=== PATIENT | female | born 1965 | race Caucasian/White ===

== ENCOUNTER 2017-03-19 00:30 | Emergency (ER) | payer OTHER ==
[~2017-03-19] VITALS: Ht 160 cm; Wt 81.2 kg
[2017-03-19] MEDS ORDERED: SIMV10TA2 (00:42)
[2017-03-19] MEDS ORDERED: METF500T4 (00:42)
[2017-03-19] MEDS ORDERED: VALI5TAB PO (06:24)
[2017-03-19] MEDS ORDERED: NAPR500T PO (06:25)
[2017-03-19] MEDS ORDERED: KETOROLAC 60 MG/2 ML VIAL (J1885) IM ONE (06:30)
--- NOTE | 2017-03-19 07:34 | REP ---
Clinical: Pain. Technique: AP, lateral, bilateral oblique, flexion/extension, swimmer's and open-mouth views of the cervical spine. Findings: Alignment and lordosis maintained. Mild to moderate multilevel degenerative disc osteophyte complexes are noted. No acute fracture / compression injury or subluxation. Open mouth view demonstrates normal C1-C2 articulation and odontoid process. Spinous processes are intact. Prevertebral soft tissues are normal. Impression: Mild to moderate multilevel degenerative changes Signed by Robel Stewart MD 03/19/2017 07:33 A
--- NOTE | 2017-03-19 07:34 | REP ---
Clinical: Pain. Technique: AP and lateral views of the left humerus. Findings: No acute fracture dislocation. Skeletal structures, joint spaces and surrounding soft tissues are normal for age. No subcutaneous emphysema or radiodense foreign body. Impression: No acute fracture dislocation. Mild age-related changes at the shoulder. Signed by Robel Stewart MD 03/19/2017 07:33 A
[2017-03-19 08:22] VITALS: BP 107/68
== END 2017-03-19 08:23 | disposition home or self-care (01) ==
LOC: M ED 02:24
DX: M54.12 Radiculopathy, cervical region (principal); E11.9 Type 2 diabetes mellitus without complications; E66.9 Obesity, unspecified; Z79.899 Other long term (current) drug therapy

== ENCOUNTER 2017-10-14 14:06 | Emergency (ER) | payer OTHER, SELFPAY ==
[~2017-10-14] VITALS: Ht 160 cm; Wt 77.7 kg
[~2017-10-14 14:06] MED LIST: METF500T4; NAPR500T PO; SIMV10TA2; VALI5TAB PO
[2017-10-14] MEDS ORDERED: NORCO, ANEXSIA 5/325MG TABLET (HYDROcodone/ACETAMINOPHEN) PO ONE (14:30)
[2017-10-14] MEDS ORDERED: NORCOTAB PO (15:05)
[2017-10-14 15:56] VITALS: BP 133/68
--- NOTE | 2017-10-14 16:05 | REP ---
LUMBOSACRAL SPINE: Five views of the lumbosacral spine are performed. There is no compression fracture or malalignment. There is normal lumbar lordosis. There is mild spurring of L4 through S1. There is moderate narrowing with subchondral sclerosis at L4-L5. There is sclerosis at the facets of L5-S1. The posterior elements are intact. There are metallic clips in the right upper quadrant. IMPRESSION: Degenerative changes, most significantly at L4-L5. No fracture or dislocation. Signed by Percy Otero MD 10/14/2017 05:03 P
--- NOTE | 2017-10-14 16:08 | REP ---
RIGHT RIB SERIES: Four views of the right ribs are performed. There is a nondisplaced fracture at the anterolateral aspect of the right 7th rib. No other rib fracture or bone lesion is seen. An accompanying view of the chest demonstrates no acute infiltrate or pneumothorax. Heart is normal in size and the mediastinal silhouette is unremarkable. IMPRESSION: Nondisplaced fracture anterolateral aspect of right 7th rib. Signed by Percy Otero MD 10/14/2017 05:03 P
== END 2017-10-14 15:50 | disposition home or self-care (01) ==
LOC: M ED 14:06
DX: S22.31XA Fracture of one rib, right side, initial encounter for closed fracture (principal); W00.0XXA Fall on same level due to ice and snow, initial encounter; Y92.014 Private driveway to single-family (private) house as the place of occurrence of the external cause; Y93.89 Activity, other specified; Y99.8 Other external cause status; M51.36 Other intervertebral disc degeneration, lumbar region; E11.9 Type 2 diabetes mellitus without complications; E78.00 Pure hypercholesterolemia, unspecified; F33.9 Major depressive disorder, recurrent, unspecified; Z79.84 Long term (current) use of oral hypoglycemic drugs

== ENCOUNTER → 2019-02-12 | Outpatient (REF) | payer BC ==
[~2019-02-12] MED LIST changes: +HYDR-3715 PO; +NAPR-837 PO; -NAPR500T PO
[2019-02-12 13:01] LABS: BASO % 0.9 % (0.0-1.0); EOS # 0.1 10^3/uL (0.0-0.50); HEMATOCRIT 44.1 % (36.0-47.0); HEMOGLOBIN 14.8 g/dl (12.0-15.5); LYMPH # 1.8 10^3/uL (1.5-4.5); LYMPH % 40.2 % (24.0-44.0); MEAN CORPUSCULAR HEMOGLOBIN 29.7 pg (27.0-33.0); MEAN CORPUSCULAR HGB CONC 33.6 g/dl (32.0-36.5); MEAN CORPUSCULAR VOLUME 88.4 fl (80.0-96.0); MONO # 0.2 10^3/uL (0.0-0.8); MONO % 5.1 % (0.0-5.0); NEUTROPHILS # 2.3 10^3/uL (1.8-7.7); NEUTROPHILS % 51.6 % (36.0-66.0); PLATELET COUNT, AUTOMATED 191 10^3/uL (150-450); RED BLOOD COUNT 4.99 10^6/uL (4.00-5.40); WHITE BLOOD COUNT 4.5 10^3/uL (4.0-10.0)
[2019-02-12 13:18] LABS: ALBUMIN 3.9 GM/DL (3.2-5.2); ALT/SGPT 21 U/L (12-78); BILIRUBIN,TOTAL 1.2 MG/DL (0.2-1.0); BLOOD UREA NITROGEN 13 MG/DL (7-18); CALCIUM LEVEL 8.6 MG/DL (8.5-10.1); CARBON DIOXIDE LEVEL 28 MEQ/L (21-32); CHLORIDE LEVEL 104 MEQ/L (98-107); CHOLESTEROL LEVEL 208 MG/DL (<200); CHOLESTEROL RISK RATIO 5.073 (<5); CREATININE FOR GFR 0.74 MG/DL (0.55-1.30); FREE T4 1.04 NG/DL (0.76-1.46); GLOMERULAR FILTRATION RATE > 60.0 (>51); GLUCOSE, FASTING 293 MG/DL (70-100); HDL CHOLESTEROL 41 MG/DL (>40); LDL CHOLESTEROL 132 MG/DL (<100); NON-HDL-C 167 MG/DL; POTASSIUM SERUM 4.5 MEQ/L (3.5-5.1); SODIUM LEVEL 137 MEQ/L (136-145); TOTAL PROTEIN 6.9 GM/DL (6.4-8.2); TRIGLYCERIDES LEVEL 176 MG/DL (<150)
[2019-02-12 13:20] LABS: HEMOGLOBIN A1c 9.9 %
== END ==
LOC: M SFHCADAM 09:13
PROVIDERS: ATTEND Family Medicine
DX: E11.9 Type 2 diabetes mellitus without complications (principal); L65.9 Nonscarring hair loss, unspecified

== ENCOUNTER → 2019-03-27 | Outpatient (REF) | payer BC ==
[2019-03-29 14:19] LABS: HPV HYBRID CAPTURE II Negative (Negative)
== END ==
LOC: M LAB REF 17:20
PROVIDERS: ATTEND Obstetrics & Gynecology
DX: Z12.4 Encounter for screening for malignant neoplasm of cervix (principal)

== ENCOUNTER → 2019-04-03 | Outpatient (CLI) | payer BC ==
--- NOTE | 2019-04-03 16:52 | REP ---
BILATERAL MAMMOGRAM WITH 3D TOMOSYNTHESIS. COMPARISON: Baseline study. HISTORY: No family history of breast cancer. Minal Wilde lifetime risk of breast cancer 8.7%. Bilateral mammography performed in the MLO and CC projections with 3D tomosynthesis. There is mild scattered fibroglandular tissue bilaterally. There is a well-circumscribed nodule in the outer left breast. This measures about 5 mm in diameter. No other nodule or clustered microcalcifications are seen bilaterally. IMPRESSION: ACR 0 incomplete. Well-circumscribed smoothly marginated 5 mm nodule outer left breast. Recommend spot compression views and ultrasound for further evaluation. BIRADS 0: BI-RADS/ACR category 0 mammogram, Incomplete: Need additional imaging evaluation and/or prior mammograms for comparison. This mammogram was interpreted with the aid of an FDA-approved computer-aided detection system. The patient states she/he had a clinical breast exam in February 2019. The patient letter being requested is M0. Electronically Signed by Percy Otero MD 04/05/2019 08:42 A
== END ==
LOC: M RAD 14:45
PROVIDERS: ATTEND Obstetrics & Gynecology
DX: R92.2 Inconclusive mammogram (principal)

== ENCOUNTER → 2019-04-23 | Outpatient (CLI) | payer BC ==
--- NOTE | 2019-04-23 11:10 | REP ---
DIGITAL DIAGNOSTIC UNILATERAL LEFT BREAST MAMMOGRAPHY WITH CAD AND FOCUSED LEFT BREAST SONOGRAPHY: HISTORY: Screening mammography from April 03, 2019 was BIRADS category 0 incomplete regarding a well-circumscribed smoothly marginated 5 mm nodule laterally in the left breast. Diagnostic imaging was recommended. FINDINGS: Magnified focal spot compression CC, MLO and true ML views of the left breast are obtained. These confirm the presence of a well-circumscribed 5 mm nodule in the left inferolateral breast at approximately 4-o'clock position. There is a tiny normal lymph node in the axillary region of the left breast as well. SONOGRAPHIC FINDINGS: Focused left breast demonstrates a 4 x 4 x 5 mm hypoechoic solid nodule 4.3 cm from the nipple at the 3-o'clock position. This it is spherical in shape. It does not have sonographically suspicious features. There is hyperechoic central areas suggesting hilar fat in an intramammary lymph node. IMPRESSION: BIRADS 3: BI-RADS/ACR category 3 mammogram. Probably Benign Findings. BIRADS category 3 probably benign findings. 5 mm nodule likely representing an intramammary lymph node in the lateral aspect of the left breast. 6-month followup left breast mammography suggested. This mammogram was interpreted with the aid of an FDA-approved computer-aided detection system. The patient letter being requested is M3. Electronically Signed by Garfield Leigh MD 04/23/2019 01:15 P
== END ==
LOC: M RAD 09:51
PROVIDERS: ATTEND Obstetrics & Gynecology
DX: N63.20 Unspecified lump in the left breast, unspecified quadrant (principal)

== ENCOUNTER → 2019-05-14 | Outpatient (REF) | payer BC ==
[2019-05-14 13:24] LABS: HEMOGLOBIN A1c 6.2 %
== END ==
LOC: M SFHCADAM 08:07
PROVIDERS: ATTEND Family Medicine
DX: E11.69 Type 2 diabetes mellitus with other specified complication (principal)

== ENCOUNTER → 2019-05-16 | Outpatient (CLI) | payer BC ==
--- NOTE | 2019-05-16 12:57 | REP ---
LEFT KNEE, FIVE VIEWS: Five views left knee are performed. There is no acute fracture or dislocation. There is mild medial joint space narrowing. There is mild lateral patellofemoral compartment narrowing. There is no joint effusion. IMPRESSION: Mild degenerative changes as above. Electronically Signed by Percy Otero MD 05/18/2019 12:58 P
== END ==
LOC: M ADAMS 10:45
PROVIDERS: ATTEND Family Medicine
DX: M25.562 Pain in left knee (principal)

== ENCOUNTER → 2019-11-19 | Outpatient (REF) | payer BC ==
[~2019-11-19] MED LIST changes: +METF-791; -METF500T4; -SIMV10TA2; +SIMV10TA21
[2019-11-19 14:04] LABS: CHOLESTEROL RISK RATIO 3.135 (<5)
[2019-11-19 14:35] LABS: HEMOGLOBIN A1c 5.6 %
== END ==
LOC: M SFHCADAM 09:01
PROVIDERS: ATTEND Family Medicine
DX: E11.69 Type 2 diabetes mellitus with other specified complication (principal)

== ENCOUNTER → 2020-02-18 | Outpatient (REF) | payer BC ==
[2020-02-18 13:57] LABS: CHOLESTEROL RISK RATIO 2.794 (<5)
[2020-02-18 14:14] LABS: HEMOGLOBIN A1c 5.5 %
== END ==
LOC: M SFHCADAM 09:03
PROVIDERS: ATTEND Family Medicine
DX: E11.9 Type 2 diabetes mellitus without complications (principal)

== ENCOUNTER → 2020-02-29 | Outpatient (REF) | payer BC | LOC: M SFHCADAM 14:46 | PROVIDERS: ATTEND Family Medicine | DX: R30.0 Dysuria (principal); R50.9 Fever, unspecified ==

== ENCOUNTER → 2020-05-19 | Outpatient (REF) | payer BC ==
[~2020-05-19] MED LIST changes: +ACET-683 PO; +BUTA-198 PO; +CLAR10CA3 PO; +DOCU100C16 PO; +DOXY100T PO; +GLIP5TAB8 PO; +LORA-436 PO; -METF-791; +METF-838 PO; +PEG1POW PO; +SIMV40TA20 PO
[2020-05-19 13:45] LABS: HEMOGLOBIN A1c 5.7 %
== END ==
LOC: M SFHCADAM 08:03
PROVIDERS: ATTEND Family Medicine
DX: E11.69 Type 2 diabetes mellitus with other specified complication (principal)

== ENCOUNTER 2020-07-09 14:00 | Inpatient (IN) | payer BC ==
[~2020-07-09] VITALS: Ht 160 cm; Wt 82.8 kg
[~2020-07-09 14:00] MED LIST changes: -ACET-683 PO; -BUTA-198 PO; -CLAR10CA3 PO; -DOCU100C16 PO; -DOXY100T PO; -GLIP5TAB8 PO; -LORA-436 PO; -PEG1POW PO; -SIMV40TA20 PO
[2020-07-09] MEDS ORDERED: ACET-683 PO (14:29)
[2020-07-09] MEDS ORDERED: CLAR10CA3 PO (14:29)
[2020-07-09] MEDS ORDERED: GLIP5TAB8 PO ×2 (14:29→18:01)
--- NOTE | 2020-07-09 14:51 | REPVR ---
PROCEDURE INFORMATION: Exam: XR Chest, 2 Views Exam date and time: 07/09/2020 2:12 PM Age: 55 years old Clinical indication: Cough TECHNIQUE: Imaging protocol: XR of the chest Views: 2 views. COMPARISON: CR Ribs uni W-PA CHEST ONLY RIGHT 10/14/2017 2:26 PM FINDINGS: Lungs: Unremarkable. No consolidation. Pleural space: Unremarkable. No pleural effusion. No pneumothorax. Heart/Mediastinum: Unremarkable. No cardiomegaly. Bones/joints: Mild degenerative change of the spine. Intraperitoneal space: Right upper quadrant surgical clips. IMPRESSION: No acute cardiopulmonary abnormality. Electronically signed by: Leonie Hamilton On 07/09/2020 14:51:00 PM
[2020-07-09 15:33] LABS: HEMATOCRIT 31.9 % (36.0-47.0); HEMOGLOBIN 11.3 g/dl (12.0-15.5); MEAN CORPUSCULAR HEMOGLOBIN 31.2 pg (27.0-33.0); MEAN CORPUSCULAR HGB CONC 35.4 g/dl (32.0-36.5); MEAN CORPUSCULAR VOLUME 88.1 fl (80.0-96.0); PLATELET COUNT, AUTOMATED 130 10^3/uL (150-450); RED BLOOD COUNT 3.62 10^6/uL (4.00-5.40); WHITE BLOOD COUNT 6.7 10^3/uL (4.0-10.0)
[2020-07-09 15:52] LABS: ALBUMIN 3.1 GM/DL (3.2-5.2); ALT/SGPT 58 U/L (12-78); BILIRUBIN,TOTAL 1.6 MG/DL (0.2-1.0); BLOOD UREA NITROGEN 12 MG/DL (7-18); CALCIUM LEVEL 8.2 MG/DL (8.5-10.1); CARBON DIOXIDE LEVEL 22 MEQ/L (21-32); CHLORIDE LEVEL 108 MEQ/L (98-107); CREATININE FOR GFR 0.89 MG/DL (0.55-1.30); GLOMERULAR FILTRATION RATE > 60.0 (>51); GLUCOSE, FASTING 230 MG/DL (70-100); POTASSIUM SERUM 3.4 MEQ/L (3.5-5.1); SODIUM LEVEL 137 MEQ/L (136-145); TOTAL PROTEIN 6.4 GM/DL (6.4-8.2)
[2020-07-09 16:06] LABS: BASOPHILS 1 % (0-1); LYMPHOCYTES 13 % (16-44); METAMYELOCYTES 1 % (0-0); MONOCYTES 5 % (0-5); MYELOCYTES 1 % (0-0); NEUTROPHILS 76 % (28-66)
[2020-07-09 16:07] LABS: PLATELET ESTIMATE DECREASED (NORMAL)
[2020-07-09] MEDS ORDERED: POTASSIUM CHLORIDE 10 MEQ SR TABLET PO ONE (16:30)
[2020-07-09] MEDS ORDERED: NS 1,000 ML IV ONE (17:15)
[2020-07-09] MEDS ORDERED: PROMETHAZINE INJ 25 MG/ML VIAL (J2550) IV ONE (17:15)
[2020-07-09] MEDS ORDERED: diphenhydrAMINE 50MG/ML VIAL (J1200) IV ONE (17:15)
[2020-07-09] MEDS ORDERED: ACETAMINOPHEN 500 MG TAB PO ONE (17:45)
[2020-07-09] MEDS ORDERED: LORA-436 PO (18:01)
[2020-07-09] MEDS ORDERED: SIMV40TA20 PO (18:01)
[2020-07-09] MEDS ORDERED: GLUCOSE 4GM CHEW TABLET PO PRN (18:15)
[2020-07-09] MEDS ORDERED: GLUCAGON INJ 1MG VIAL SC PRN (18:15)
[2020-07-09] MEDS ORDERED: DEXTROSE 50% 50 ML SYRINGE IV PRN (18:15)
--- NOTE | 2020-07-09 18:24 | HPEPDOC ---
[facility] Medical History & Physical Date of Admission Jul 09, 2020 Date of Service: Jul 09, 2020 History and Physical Chief complaint: Presented to the ER from urgent care after she had a fever History of present illness: Patient is a 55 year old female with a PMHx of DM2, DLP and Arthritis who presented to the ER from Urgent care after she was noted to have a fever. Patient reported that on Tuesday she began to experience chills. On Tuesday, she had woken up to headache, including mostly her sinuses around her cheeks and forehead. Patient noted that she had a fever of 101-102F that had improved with Ibuprofen. Tuesday patient had gone into work but experienced a fever that afternoon, again she managed with Ibuprofen. Today patient called in sick to work and visited urgent care ([facility]) for further evaluation. Patient had a septic workup completed there. COVID / CXR / UA were noted to be negative. Patient was noted to have a rectal temperature of 104F, she receive IV fluids a dose of Ceftriaxone 2g IV and Ketorolac IV was sent to [facility] ER for further evaluation. Currently patient notes she has a headache around her frontal region. Denies any N/V, abdominal pain, constipation, diarrhea or urinary discomfort. Denies any CP, SOB or palpitations. Reports a chronic cough. Patient has reported a history of multiple urinary tract infections; over the course of 6 months has had 5-6 UTIs. Patient denies any recent travel or sick contacts. Has noted that she had gone camping at the end of April, however denied any insect bites that she was aware of. Past Medical History: DM2, DLP and Arthritis Past Surgical History: Cholecystectomy Appendectomy Tonsillectomy Adenoidectomy Tympanostomy Bilateral Multiple broken bones Allergies: See below Medications: See below Family History: - Patient notes she was adopted Social History: - Denies the use of alcohol, tobacco or illicit drugs - Denies recent travel or sick contacts; although notes she went camping at the end of April - Lives with parents and is - Occupation; works at [employer] Review of Systems: 10 point review of systems complete, all negative otherwise stated in HPI Physical exam: - Vitals: BP [128/61], HR [98], RR [16], Sat [97%RA], Temp [101.9F] - General: Lying in bed, Chills, Speaking in full sentences, AAOx3 - HEENT: NC, AT, PERRLA, EOMI - CVS: Tachycardia, +S1S2 - Lungs: Fair air entry bilaterally, No appreciable wheezing / rales / rhonchi - Abdomen: Soft, Non-distended, Non-tender - Extremities: No lower extremity edema, No calf tenderness - Neuro: No focal motor or sensory deficit - Skin: No visible rashes Assessment and Plan: Fever - unclear etiology - Patient has presented to [facility] ER, from Urgent care after she had a fever - Currently patient is hemodynamically stable; although febrile - No leukocytosis, No lactic acidosis - UA competed at urgent care; reviewed without evidence of LE / Nitrates - Respiratory panel (07/08): Negative - CT head (07/08): No acute intracranial abnormality identified. - CXR (07/08): No acute cardiopulmonary abnormality. - Will repeat UA w/ reflex culture - Blood cultures pending - Will check CT abdomen / pelvis, MRI brain - Will check EBV / Lyme disease / ESR / CRP / Procalcitonin / ROQUE - Will empirically start Doxycycline; will adjust antibiotics base on cultures - Will consider ID consultation if workup remains negative DM2 - Will hold oral anti-hyperglycemic medications - Will start ISS while inpatient DLP - c/w Simvastatin Arthritis - c/w Tylenol PRN DVT prophylaxis - Will start Heparin Vital Signs Vital Signs Date Time Temp Pulse Resp B/P (MAP) Pulse Ox O2 Delivery O2 Flow Rate FiO2 07/09/20 17:23 101.9 98 16 128/61 (83) 92 Room Air Laboratory Data Labs 24H Laboratory Tests 2 07/09/20 14:34: 07/09/20 14:45: Neutrophils (%) (Auto) , Nucleated Red Blood Cells % (auto) 0.0, Neutrophils 76H, Band Neutrophils 3, Lymphocytes (Manual) 13L, Monocytes (Manual) 5, Basophils (Manual) 1, Metamyelocytes 1H, Myelocytes 1H, Red Blood Cell Morphology NORMAL, Platelet Estimate DECREASED, Anion Gap 7L, Glomerular Filtration Rate > 60.0, Lactic Acid Level 1.1, Calcium Level 8.2L, Total Bilirubin 1.6H, Aspartate Amino Transf (AST/SGOT) 49H, Alanine Aminotransferase (ALT/SGPT) 58, Alkaline Phosphatase 76, C-Reactive Protein, Quantitative 15.60H, Total Protein 6.4, Albumin 3.1L, Albumin/Globulin Ratio 0.9L CBC/BMP Laboratory Tests 07/09/20 14:45 Microbiology Microbiology 07/09/20 Respiratory Virus Panel (PCR) (JACINDA) - Final, Complete 07/09/20 Blood Culture, Received Pending 07/09/20 Blood Culture, Received Pending Home Medications Scheduled Doxycycline Hyclate (Doxycycline Hyclate) 100 Mg Tablet, 100 MG PO BID Glipizide (Glipizide) 5 Mg Tablet, 5 MG PO QAM Glipizide (Glipizide) 5 Mg Tablet, 10 MG PO QPM Loratadine (Loratadine) 10 Mg Tablet, 10 MG PO DAILY Metformin HCl (Metformin HCl ER) 500 Mg Tab, 1,000 MG PO QPM Polyethylene Glycol 3350 (Polyethylene Glycol 3350) 17 Gm Powd.pack, 1 PKT PO DAILY Simvastatin (Simvastatin) 40 Mg Tablet, 40 MG PO QHS Scheduled PRN Acetaminophen (Acetaminophen) 500 Mg Tablet, 1,500 MG PO Q6H PRN for NECK PAIN Docusate Sodium (Docusate Sodium) 100 Mg Capsule, 100 MG PO BIDP PRN for CONSTIPATION Allergies Coded Allergies: No Known Allergies (Unverified , 03/19/17) A-FIB/CHADSVASC A-FIB History Current/History of A-Fib/PAF?: No SANTOSH PARK MD Jul 09, 2020 18:24
[2020-07-09] MEDS ORDERED: ISOVUE-370 76% 100ML VIAL As Ordered ONE (18:25)
[2020-07-09 18:28] LABS: MONO SCRN NEGATIVE (NEGATIVE)
[2020-07-09 18:38] LABS: ERYTHROCYTE SEDIMENTATION RATE 84 mm/hr (0-30)
[2020-07-09] MEDS ORDERED: DOXYCYCLINE HYCLATE 100MG TABLET PO SCH (19:00)
--- NOTE | 2020-07-09 20:28 | REPVR ---
PROCEDURE INFORMATION: Exam: MR Head Without Contrast Exam date and time: 07/09/2020 7:21 PM Age: 55 years old Clinical indication: Pain; Headache not specified; Patient HX: H/a fever 101. PT negative for covid and flu TECHNIQUE: Imaging protocol: MR of the head without contrast. COMPARISON: CT Head without contrast 07/09/2020 3:05 PM FINDINGS: Limitations: Motion artifact limits this study. Brain: No restricted diffusion within the brain to suggest an acute infarct. There are scattered foci of FLAIR hyperintensity within the cerebral white matter. There is no mass effect or restricted diffusion associated with these foci. This white matter disease is nonspecific as to etiology. Chronic small vessel ischemic disease is suggested. Additional etiologies include foci of demyelination, post-traumatic change, and migraine headaches, as well as additional infectious, inflammatory and autoimmune etiologies. Mild FLAIR hyperintense edema or gliosis is identified involving the frontal cortices medially as well as the medial temporal lobes. There is additional edema/gliosis involving the left insula. Although nonspecific, encephalitis is considered. No magnetic susceptibility intracerebral blood products/hemosiderin visualized. Ventricles: There is mild prominence of the ventricles and sulci, compatible with atrophy. Bones/joints: Unremarkable, as visualized. Sinuses: Mild mucosal thickening of ethmoid air cells bilaterally. Mastoid air cells: No mastoid effusion. Orbits: No acute abnormality visualized. Soft tissues: Unremarkable, as visualized. IMPRESSION: 1. Mild edema or gliosis is identified involving the frontal cortices medially as well as the medial temporal lobes. There is additional edema/gliosis involving the left insula. Although nonspecific, encephalitis is considered. Clinical correlation and a follow-up MRI with/without contrast are recommended. 2. No restricted diffusion within the brain to suggest an acute infarct. 3. There are scattered foci of FLAIR hyperintensity within the cerebral white matter. This white matter disease is nonspecific as to etiology, as detailed above. Chronic small vessel ischemic disease is suggested. 4. Mild atrophy. 5. Additional findings described above. Electronically signed by: Rohan Dawson On 07/09/2020 20:28:12 PM
--- NOTE | 2020-07-09 20:43 | REPVR ---
PROCEDURE INFORMATION: Exam: CT Abdomen And Pelvis With Contrast Exam date and time: 07/09/2020 8:02 PM Age: 55 years old Clinical indication: Abdominal pain; Generalized; Additional info: Multiple UTI / fever TECHNIQUE: Imaging protocol: Computed tomography of the abdomen and pelvis with intravenous contrast. Radiation optimization: All CT scans at this facility use at least one of these dose optimization techniques: automated exposure control; mA and/or kV adjustment per patient size (includes targeted exams where dose is matched to clinical indication); or iterative reconstruction. Contrast material: ISOVUE 370; Contrast volume: 100 ml; Contrast route: INTRAVENOUS (IV); COMPARISON: CT ABD PELVIS W/O CONTRAST 04/09/2015 12:11 PM FINDINGS: Lungs: Bibasilar atelectatic changes are identified. Mediastinal space: Wall thickening of the distal esophagus is visualized, which has progressed. This can be due to esophagitis, although additional esophageal pathology cannot be excluded. Small paraesophageal lymph nodes are identified. Liver: Mild hypodense fatty infiltration of the liver. Hepatomegaly. Within the right hepatic lobe posteriorly, there is a 1.4 x 1.1 cm hypodense lesion with peripheral nodular enhancement. This likely represents a hemangioma, although additional pathology cannot be excluded without delayed imaging. Gallbladder and bile ducts: Surgical clips are identified within the gallbladder fossa, compatible with cholecystectomy. Pancreas: Unremarkable. No ductal dilation. Spleen: Splenomegaly visualized. The spleen measures 14.8 cm in length. Adrenals: No mass. Kidneys and ureters: There is heterogeneous enhancement at the upper pole of the right kidney. Right perinephric stranding is identified. This is concerning for pyelonephritis given the clinical history of UTI. Small renal lesions cannot be excluded. A small nonobstructing right renal calculus is identified. Additional simple appearing renal cysts are identified bilaterally. At the upper pole of the left kidney, this cyst measures 1.3 cm in diameter. No hydronephrosis bilaterally. Duplication of the right renal cortex.Colonic diverticula are identified, without acute inflammatory stranding of the adjacent mesentery. Stomach and bowel: Wall thickening of the antrum of the stomach and proximal duodenum, suggestive of gastroenteritis. Evaluation of bowel is limited by the absence of oral contrast. No bowel obstruction. Appendix: No evidence of appendicitis. Intraperitoneal space: No free air. No significant fluid collection. Vasculature: No abdominal aortic aneurysm. Lymph nodes: See "Mediastinal space" finding. Bladder: Gas is visualized within the bladder, which is likely iatrogenic or infectious. Reproductive: Unremarkable as visualized. Bones/joints: Hypertrophic degenerative changes are noted involving the spine. Soft tissues: Unremarkable. IMPRESSION: 1. There is heterogeneous enhancement at the upper pole of the right kidney. Right perinephric stranding is identified. This is concerning for pyelonephritis given the clinical history of UTI. Small renal lesions cannot be excluded. 2. A small nonobstructing right renal calculus is identified. Additional simple appearing renal cysts are identified bilaterally. 3. Wall thickening of the distal esophagus is visualized, which has progressed. This can be due to esophagitis, although additional esophageal pathology cannot be excluded. Small paraesophageal lymph nodes are identified. 4. Mild hypodense fatty infiltration of the liver. Hepatomegaly. Within the right hepatic lobe posteriorly, there is a 1.4 x 1.1 cm hypodense lesion with peripheral nodular enhancement. This likely represents a hemangioma, although additional pathology cannot be excluded without delayed imaging. A follow-up multiphase postcontrast CT is recommended. 5. Splenomegaly. 6. Wall thickening of the antrum of the stomach and proximal duodenum, suggestive of gastroenteritis. 7. Gas is visualized within the bladder, which is likely iatrogenic or infectious. 8. Diverticulosis. 9. Additional findings described above. Electronically signed by: Rohan Dawson On 07/09/2020 20:43:11 PM
[2020-07-09 21:10] VITALS: BP 114/61
[2020-07-09] MEDS: HumaLOG INSULIN (NovoLOG) PER UNIT SC SCH (22:04)
[2020-07-09] MEDS: SIMVASTATIN 40 MG TAB PO SCH (22:04)
[2020-07-09] MEDS: ACETAMINOPHEN TAB 650MG DOSE (2X325MG) PO PRN (22:05)
[2020-07-09] MEDS: HEPARIN SOD (PORCINE) 5000UNITS/ML 1ML VIAL/SYRINGE SC SCH (22:05)
[2020-07-09] MEDS ORDERED: CIPROFLOXACIN 200 MG in IV 1 EA IV SCH (23:00)
[2020-07-10] VITALS (8 sets, daily range): BP systolic 92–117; BP diastolic 51–60
[2020-07-10] MEDS: DOCUSATE SODIUM 100 MG CAP PO PRN (00:22)
[2020-07-10] MEDS ORDERED: NS 1,000 ML IV ONE ×2 (02:15→03:45)
[2020-07-10] MEDS: ACETAMINOPHEN TAB 650MG DOSE (2X325MG) PO PRN ×2 (03:48→15:55)
[2020-07-10] MEDS: NS 1,000 ML IV SCH ×2 (05:10→11:55)
[2020-07-10] MEDS: HEPARIN SOD (PORCINE) 5000UNITS/ML 1ML VIAL/SYRINGE SC SCH (05:28)
[2020-07-10] MEDS: MIRALAX *UNIT DOSE* 17GM PACKET PO SCH (05:52)
[2020-07-10 06:18] LABS: HEMATOCRIT 26.3 % (36.0-47.0); MEAN CORPUSCULAR HEMOGLOBIN 30.9 pg (27.0-33.0); MEAN CORPUSCULAR HGB CONC 34.2 g/dl (32.0-36.5); MEAN CORPUSCULAR VOLUME 90.4 fl (80.0-96.0); PLATELET COUNT, AUTOMATED 117 10^3/uL (150-450); RED BLOOD COUNT 2.91 10^6/uL (4.00-5.40); WHITE BLOOD COUNT 5.4 10^3/uL (4.0-10.0)
[2020-07-10 06:41] LABS: BLOOD UREA NITROGEN 12 MG/DL (7-18); CALCIUM LEVEL 7.7 MG/DL (8.5-10.1); CARBON DIOXIDE LEVEL 19 MEQ/L (21-32); CHLORIDE LEVEL 115 MEQ/L (98-107); CREATININE FOR GFR 0.63 MG/DL (0.55-1.30); GLOMERULAR FILTRATION RATE > 60.0 (>51); GLUCOSE, FASTING 120 MG/DL (70-100); MAGNESIUM LEVEL 1.7 MG/DL (1.8-2.4); POTASSIUM SERUM 3.5 MEQ/L (3.5-5.1); SODIUM LEVEL 139 MEQ/L (136-145)
[2020-07-10] MEDS ORDERED: MAG SULF 1GM/100ML (MAG RUN) 1 GM in IV 1 EA IV ONE (07:00)
[2020-07-10] MEDS ORDERED: POTASSIUM CHLORIDE 10 MEQ SR TABLET PO ONE (07:00)
[2020-07-10] MEDS ORDERED: MEROPENEM INJ 1 GM in IV 1 EA IV SCH (08:00)
[2020-07-10] MEDS: LORATADINE 10 MG TAB PO SCH (08:24)
[2020-07-10] MEDS: HumaLOG INSULIN (NovoLOG) PER UNIT SC SCH ×4 (08:25→21:00)
[2020-07-10] MEDS ORDERED: DOXYCYCLINE HYCLATE 100MG TABLET PO SCH (09:00)
[2020-07-10] MEDS ORDERED: PROHANCE 279.3MG/ML 15ML VIAL As Ordered ONE (09:57)
--- NOTE | 2020-07-10 10:34 | REPVR ---
PROCEDURE INFORMATION: Exam: MR Head With Contrast Exam date and time: 07/10/2020 10:19 AM Age: 55 years old Clinical indication: Abnormal findings; Abnormal radiologic findings of head/skull; White matter disease, unspecified; Patient HX: Post contrast only, f/u yesterday noncontrast brain mri; Additional info: Fever, brain mri showing edema/gliosis TECHNIQUE: Imaging protocol: MR of the head with intravenous contrast. Contrast material: PROHANCE; Contrast volume: 15 ml; Contrast route: INTRAVENOUS (IV); COMPARISON: MRI-Brain without Contrast 07/09/2020 6:52 PM FINDINGS: Brain: Postcontrast images of the brain reveals no abnormal contrast enhancement in the areas increased T2/FLAIR signal in bilateral medial frontal and medial temporal lobes. Viral encephalitis such as herpes encephalitis should be considered. No abnormal contrast enhancement is seen to suggest underlying mass lesion. No abnormal contrast enhancement is seen in the remainder of the brain parenchyma. Ventricles: The ventricular system is not dilated and is appropriate for the patient's age. Bones/joints: Unremarkable. Sinuses: Normal as visualized. No acute sinusitis. Mastoid air cells: Normal as visualized. No mastoid effusion. Orbits: Unremarkable. Soft tissues: Unremarkable. IMPRESSION: Postcontrast images of the brain reveals no abnormal contrast enhancement in the areas increased T2/FLAIR signal in bilateral medial frontal and medial temporal lobes. Viral encephalitis such as herpes encephalitis should be considered. No abnormal contrast enhancement is seen to suggest underlying mass lesion. No abnormal contrast enhancement is seen in the remainder of the brain parenchyma. Electronically signed by: Danny Bear On 07/10/2020 10:34:34 AM
--- NOTE | 2020-07-10 14:16 | IPNPDOC ---
Text Note Date of Service The patient was seen on 07/10/20. NOTE Subjective: Patient is a 55 year old female with a PMHx of DM2, DLP and Arthritis who presented to the ER from Urgent care after she was noted to have a fever. She was admitted to the hospitalist service for fever and started on Doxycycline. Overnight patient was reported to be hypotensive and had received 3L NS bolus. There was a suspicion for UTI and Ciprofloxacin was started. This morning patient was given a dose of Meropenem because of a concern for sepsis. Patient's lactic acid was normal, no leukocytosis, remained afebrile. Patient's antibiotics were adjusted back to Doxycycline. Based on MRI findings and after discussion with radiology, anesthesia was consulted for lumbar puncture to rule encephalitis. Patient was seen and examined at the bedside. Currently patient denies any CP, SOB or palpitations. Reports a mild non-productive cough that she attributes to dry air. Denies N/V, abdominal pain, C/D or urinary discomfort. Objective: Vitals (See below) General: Lying in bed, appears comfortable, AAOx3 HEENT: NC, AT CVS: RRR, +S1S2 Lungs: Fair air entry b/l, -w/r/r Abdomen: Soft, ND, NT, No CVA tenderness Extremities: No edema, - Calf tenderness Imaging: CXR (07/08): - No acute cardiopulmonary abnormality. CT head (07/08): - No acute intracranial abnormality identified. CT abdomen / pelvis 07/09: 1. There is heterogeneous enhancement at the upper pole of the right kidney. Right perinephric stranding is identified. This is concerning for pyelonephritis given the clinical history of UTI. Small renal lesions cannot be excluded. 2. A small nonobstructing right renal calculus is identified. Additional simple appearing renal cysts are identified bilaterally. 3. Wall thickening of the distal esophagus is visualized, which has progressed. This can be due to esophagitis, although additional esophageal pathology cannot be excluded. Small paraesophageal lymph nodes are identified. 4. Mild hypodense fatty infiltration of the liver. Hepatomegaly. Within the right hepatic lobe posteriorly, there is a 1.4 x 1.1 cm hypodense lesion with peripheral nodular enhancement. This likely represents a hemangioma, although additional pathology cannot be excluded without delayed imaging. A follow-up multiphase postcontrast CT is recommended. 5. Splenomegaly. 6. Wall thickening of the antrum of the stomach and proximal duodenum, suggestive of gastroenteritis. 7. Gas is visualized within the bladder, which is likely iatrogenic or infectious. 8. Diverticulosis. 9. Additional findings described above. MRI brain without contrast (07/09): 1. Mild edema or gliosis is identified involving the frontal cortices medially as well as the medial temporal lobes. There is additional edema/gliosis involving the left insula. Although nonspecific, encephalitis is considered. Clinical correlation and a follow-up MRI with/without contrast are recommended. 2. No restricted diffusion within the brain to suggest an acute infarct. 3. There are scattered foci of FLAIR hyperintensity within the cerebral white matter. This white matter disease is nonspecific as to etiology, as detailed above. Chronic small vessel ischemic disease is suggested. 4. Mild atrophy. 5. Additional findings described above. MRI brain with contrast (07/10): Postcontrast images of the brain reveals no abnormal contrast enhancement in the areas increased T2/FLAIR signal in bilateral medial frontal and medial temporal lobes. Viral encephalitis such as herpes encephalitis should be considered. No abnormal contrast enhancement is seen to suggest underlying mass lesion. No abnormal contrast enhancement is seen in the remainder of the brain parenchyma. Assessment and plan: Fever - unclear etiology - Patient has presented to [facility] ER, from Urgent care after she had a fever - Remains afebrile since admission; patient was reported hypotensive at night - No leukocytosis or lactic acidosis - UA competed at urgent care; reviewed without evidence of LE / Nitrates; However UA here shows suspicion of UTI - patient remains asymptomatic - Urine cultures (07/09): Pending - Respiratory panel (07/08): Negative - Blood cultures 07/09: Pending - c/w Doxycycline (Day #2); s/p Dose of Meropenem and Ciprofloxacin - [place] negative - Lyme disease pending / ROQUE pending - Discussed with Anesthesia; will perform LP today and CSF will be sent for analysis - Consultation ID [id number] - c/w ISS DLP - c/w Simvastatin Arthritis - c/w Tylenol PRN DVT prophylaxis - Will hold Heparin (re: LP) VS,Fishbone, I+O VS, Fishbone, I+O Laboratory Tests 07/09/20 14:45 07/10/20 05:54 Vital Signs Date Time Temp Pulse Resp B/P (MAP) Pulse Ox O2 Delivery O2 Flow Rate FiO2 07/10/20 05:05 98.0 89 96 Room Air 07/10/20 04:55 100/60 (73) 07/10/20 03:30 21 I&O- Last 24 Hours up to 6 AM 07/10/20 06:00 Intake Total 3640 ml Output Total 350 ml Balance 3290 ml SANTOSH PARK MD Jul 10, 2020 14:16
[2020-07-10 16:07] LABS: APPEARANCE, CSF CLEAR (CLEAR); COLOR, CSF COLORLESS (COLORLESS); CSF TUBE# CELL CNT TUBE 1
[2020-07-10 16:08] LABS: APPEARANCE, CSF CLEAR (CLEAR); COLOR, CSF COLORLESS (COLORLESS); CSF TUBE# CELL CNT TUBE 4
[2020-07-10 16:26] LABS: CSF TUBE# GLU TUBE 2; CSF TUBE# TP TUBE 2; GLUCOSE CSF 64 MG/DL (40-75); TOTAL PROTEIN,CSF 32 MG/DL (15-45)
[2020-07-10] MEDS ORDERED: FIORICET TAB PO ONE (17:00)
[2020-07-10] MEDS ORDERED: IBUPROFEN 600MG TAB PO PRN (17:30)
[2020-07-10] MEDS: DOXYCYCLINE HYCLATE 100MG TABLET PO SCH (17:39)
[2020-07-10] MEDS: SIMVASTATIN 40 MG TAB PO SCH (21:18)
[2020-07-11 06:00] VITALS: BP 110/56
[2020-07-11] MEDS: ACETAMINOPHEN TAB 650MG DOSE (2X325MG) PO PRN ×2 (06:43→20:49)
[2020-07-11 06:46] LABS: HEMATOCRIT 26.7 % (36.0-47.0); HEMOGLOBIN 9.2 g/dl (12.0-15.5); MEAN CORPUSCULAR HEMOGLOBIN 30.9 pg (27.0-33.0); MEAN CORPUSCULAR HGB CONC 34.5 g/dl (32.0-36.5); MEAN CORPUSCULAR VOLUME 89.6 fl (80.0-96.0); PLATELET COUNT, AUTOMATED 146 10^3/uL (150-450); RED BLOOD COUNT 2.98 10^6/uL (4.00-5.40); WHITE BLOOD COUNT 5.6 10^3/uL (4.0-10.0)
[2020-07-11 07:03] LABS: BLOOD UREA NITROGEN 8 MG/DL (7-18); CALCIUM LEVEL 7.8 MG/DL (8.5-10.1); CARBON DIOXIDE LEVEL 22 MEQ/L (21-32); CHLORIDE LEVEL 110 MEQ/L (98-107); CREATININE FOR GFR 0.54 MG/DL (0.55-1.30); GLOMERULAR FILTRATION RATE > 60.0 (>51); GLUCOSE, FASTING 151 MG/DL (70-100); POTASSIUM SERUM 3.9 MEQ/L (3.5-5.1); SODIUM LEVEL 137 MEQ/L (136-145)
[2020-07-11] MEDS: HumaLOG INSULIN (NovoLOG) PER UNIT SC SCH ×4 (07:30→20:38)
[2020-07-11] MEDS ORDERED: INFLUENZA QUADRIVALENT PF VACCINE 0.5ML SYRINGE IM ONE (09:00)
[2020-07-11] MEDS ORDERED: FLUBLOK(EGG FREE)(QUAD)INFLUENZA VACC 0.5ML SYRINGE 18YRS & OLDER IM ONE (09:00)
[2020-07-11] MEDS: MIRALAX *UNIT DOSE* 17GM PACKET PO SCH (09:00)
[2020-07-11] MEDS: LORATADINE 10 MG TAB PO SCH (09:11)
[2020-07-11] MEDS: DOXYCYCLINE HYCLATE 100MG TABLET PO SCH ×2 (09:12→20:47)
--- NOTE | 2020-07-11 13:39 | IPNPDOC ---
Text Note Date of Service The patient was seen on 07/11/20. NOTE Subjective: Patient is a 55 year old female with a PMHx of DM2, DLP and Arthritis who presented to the ER from Urgent care after she was noted to have a fever. She was admitted to the hospitalist service for fever and started on Doxycycline. Overnight patient was reported to be hypotensive and had received 3L NS bolus. There was a suspicion for UTI and Ciprofloxacin was started. This morning patient was given a dose of Meropenem because of a concern for sepsis. Patient's lactic acid was normal, no leukocytosis, remained afebrile. Patient's antibiotics were adjusted back to Doxycycline. Based on MRI findings and after discussion with radiology, anesthesia was consulted for lumbar puncture to rule encephalitis. Patient was seen and examined at the bedside. Patient reports that her headache is doing better. She denies any sensitivity to light today. She denies any nausea, vomiting, abdominal pain, diarrhea, or urinary discomfort. Denies any chest pain, palpitations, but does report a mild nonproductive cough. Objective: Vitals (See below) General: Sitting up in bed, appears comfortable, AAOx3 HEENT: NC, AT CVS: RRR, +S1S2 Lungs: Fair air entry b/l, no appreciable wheezing, rhonchi or rales Abdomen: Soft, nondistended, without tenderness Extremities: Lower extremities are free of any pitting edema, - Calf tenderness Imaging: CXR (07/08): - No acute cardiopulmonary abnormality. CT head (07/08): - No acute intracranial abnormality identified. CT abdomen / pelvis 07/09: 1. There is heterogeneous enhancement at the upper pole of the right kidney. Right perinephric stranding is identified. This is concerning for pyelonephritis given the clinical history of UTI. Small renal lesions cannot be excluded. 2. A small nonobstructing right renal calculus is identified. Additional simple appearing renal cysts are identified bilaterally. 3. Wall thickening of the distal esophagus is visualized, which has progressed. This can be due to esophagitis, although additional esophageal pathology cannot be excluded. Small paraesophageal lymph nodes are identified. 4. Mild hypodense fatty infiltration of the liver. Hepatomegaly. Within the right hepatic lobe posteriorly, there is a 1.4 x 1.1 cm hypodense lesion with peripheral nodular enhancement. This likely represents a hemangioma, although additional pathology cannot be excluded without delayed imaging. A follow-up multiphase postcontrast CT is recommended. 5. Splenomegaly. 6. Wall thickening of the antrum of the stomach and proximal duodenum, suggestive of gastroenteritis. 7. Gas is visualized within the bladder, which is likely iatrogenic or infectious. 8. Diverticulosis. 9. Additional findings described above. MRI brain without contrast (07/09): 1. Mild edema or gliosis is identified involving the frontal cortices medially as well as the medial temporal lobes. There is additional edema/gliosis involving the left insula. Although nonspecific, encephalitis is considered. Clinical correlation and a follow-up MRI with/without contrast are recommended. 2. No restricted diffusion within the brain to suggest an acute infarct. 3. There are scattered foci of FLAIR hyperintensity within the cerebral white matter. This white matter disease is nonspecific as to etiology, as detailed ab ove. Chronic small vessel ischemic disease is suggested. 4. Mild atrophy. 5. Additional findings described above. MRI brain with contrast (07/10): Postcontrast images of the brain reveals no abnormal contrast enhancement in the areas increased T2/FLAIR signal in bilateral medial frontal and medial temporal lobes. Viral encephalitis such as herpes encephalitis should be considered. No abnormal contrast enhancement is seen to suggest underlying mass lesion. No abnormal contrast enhancement is seen in the remainder of the brain parenchyma. Assessment and plan: Fever - unclear etiology - Patient has presented to [facility] ER, from Urgent care after she had a fever - Reports improvement of headache - Febrile yesterday - No leukocytosis or lactic acidosis - Urine cultures (07/09): Negative - Respiratory panel (07/08): Negative - Blood cultures 07/09: 24 hours negative - c/w Doxycycline (Day #3); s/p Dose of Meropenem and Ciprofloxacin - [place] negative - Lyme disease pending / ROQUE pending - s/p CSF; fluid reviewed - Will get MRI abdomen - ID on consultation; appreciate their input Small renal lesions cannot be excluded based on CT abdomen - Will get MRI abdomen DM2 - c/w ISS DLP - c/w Simvastatin Arthritis - c/w Tylenol PRN and Ibuprofen PRN DVT prophylaxis - Will resume Heparin VS,Fishbone, I+O VS, Fishbone, I+O Laboratory Tests 07/11/20 06:24 Vital Signs Date Time Temp Pulse Resp B/P (MAP) Pulse Ox O2 Delivery O2 Flow Rate FiO2 07/11/20 06:00 98.0 79 16 110/56 (74) 96 Room Air I&O- Last 24 Hours up to 6 AM 07/11/20 06:00 Intake Total 1410 ml Output Total 875 ml Balance 535 ml SANTOSH PARK MD Jul 11, 2020 13:39
[2020-07-11] MEDS ORDERED: FIORICET TAB PO PRN (13:45)
[2020-07-11 14:00] VITALS: BP 112/57
[2020-07-11] MEDS: HEPARIN SOD (PORCINE) 5000UNITS/ML 1ML VIAL/SYRINGE SQ SCH ×2 (15:18→20:48)
[2020-07-11 18:09] LABS: Lyme Disease IgG/IgM Antibodie <0.91 ISR (0.00-0.90); Lyme Disease IgM Ab Quantitati <0.80 index (0.00-0.79)
[2020-07-11] MEDS: SIMVASTATIN 40 MG TAB PO SCH (20:47)
[2020-07-11] MEDS: DOCUSATE SODIUM 100 MG CAP PO PRN (20:57)
[2020-07-11 22:00] VITALS: BP 110/58
[2020-07-12 02:00] VITALS: BP 110/59
[2020-07-12] MEDS: HEPARIN SOD (PORCINE) 5000UNITS/ML 1ML VIAL/SYRINGE SQ SCH (05:29)
[2020-07-12 06:00] VITALS: BP 111/61
[2020-07-12 07:00] LABS: HEMATOCRIT 27.7 % (36.0-47.0); HEMOGLOBIN 9.2 g/dl (12.0-15.5); MEAN CORPUSCULAR HEMOGLOBIN 30.2 pg (27.0-33.0); MEAN CORPUSCULAR HGB CONC 33.2 g/dl (32.0-36.5); MEAN CORPUSCULAR VOLUME 90.8 fl (80.0-96.0); PLATELET COUNT, AUTOMATED 171 10^3/uL (150-450); RED BLOOD COUNT 3.05 10^6/uL (4.00-5.40); WHITE BLOOD COUNT 4.2 10^3/uL (4.0-10.0)
[2020-07-12 07:12] LABS: BLOOD UREA NITROGEN 10 MG/DL (7-18); CALCIUM LEVEL 8.8 MG/DL (8.5-10.1); CARBON DIOXIDE LEVEL 25 MEQ/L (21-32); CHLORIDE LEVEL 109 MEQ/L (98-107); CREATININE FOR GFR 0.52 MG/DL (0.55-1.30); GLOMERULAR FILTRATION RATE > 60.0 (>51); GLUCOSE, FASTING 179 MG/DL (70-100); POTASSIUM SERUM 3.7 MEQ/L (3.5-5.1); SODIUM LEVEL 139 MEQ/L (136-145)
[2020-07-12] MEDS: HumaLOG INSULIN (NovoLOG) PER UNIT SC SCH ×2 (09:52→12:08)
[2020-07-12] MEDS: MIRALAX *UNIT DOSE* 17GM PACKET PO SCH (09:52)
[2020-07-12] MEDS: LORATADINE 10 MG TAB PO SCH (09:52)
[2020-07-12] MEDS: DOXYCYCLINE HYCLATE 100MG TABLET PO SCH (09:52)
--- NOTE | 2020-07-12 10:11 | REPVR ---
PROCEDURE INFORMATION: Exam: MR Abdomen Without and With Contrast Exam date and time: 07/12/2020 9:38 AM Age: 55 years old Clinical indication: Condition or disease; Other: Evaluate R ebony (re: Lesions); Additional info: Evaluate R ebony (re: Lesions) TECHNIQUE: Imaging protocol: MR of the abdomen without and with intravenous contrast. Contrast material: PROHANCE; Contrast volume: 16 ml; Contrast route: INTRAVENOUS (IV); COMPARISON: CT ABD PELVIS WITH CONTRAST 07/09/2020 7:55 PM FINDINGS: Liver: Diffuse hepatic steatosis. 16 mm benign right hepatic lobe hemangioma. Gallbladder and bile ducts: No abnormal biliary ductal dilatation. Status post cholecystectomy. Pancreas: Unremarkable. No ductal dilation. Spleen: The spleen measures approximately 15.4 cm in length. Adrenals: Unremarkable. No mass. Kidneys and ureters: No hydronephrosis. Mild right perinephric edema. 10 mm simple left renal cortical cyst. No follow-up imaging is recommended. Mild patchy hypoenhancement of the upper pole of the right kidney. Simple 8 mm right renal cortical cyst. Additional tiny simple right renal cortical cysts. The renal arteries and renal veins appear patent. No renal mass is identified. Stomach and bowel: No bowel obstruction. Mild circumferential wall thickening of the 2nd portion of the duodenum. No bowel obstruction. Intraperitoneal space: No free fluid. Arteries: No abdominal aortic aneurysm. Bones/joints: Mild degenerative change of the spine. Soft tissues: Mild subcutaneous edema of the lateral abdominal butler. IMPRESSION: 1. Mild patchy hypoenhancement of the upper pole of the right kidney and mild right perinephric edema. Findings are suggestive of acute pyelonephritis. 2. Diffuse hepatic steatosis. 3. Splenomegaly. 4. Benign right hepatic lobe hemangioma. 5. Mild proximal duodenitis. This appears improved since the prior CT. Electronically signed by: Leonie Hamilton On 07/12/2020 10:11:20 AM
[2020-07-12] MEDS ORDERED: PEG1POW PO (12:20)
[2020-07-12] MEDS ORDERED: DOXY100T PO (12:20)
[2020-07-12] MEDS ORDERED: BUTA-198 PO (12:20)
[2020-07-12] MEDS ORDERED: DOCU100C16 PO (12:20)
--- NOTE | 2020-07-12 12:43 | DS.PDOC ---
Discharge Summary General Date of Admission Jul 09, 2020 at 18:02 Date of Discharge 07/12/2020 Discharge Summary PROCEDURES PERFORMED DURING STAY: Lumbar puncture 07/10/2020 by Anesthesiology ADMITTING DIAGNOSES / DISCHARGE DIAGNOSES: Fever - unclear etiology Small renal lesions cannot be excluded based on CT abdomen Small Hemangioma DM2 DLP Arthritis DVT prophylaxis COMPLICATIONS/CHIEF COMPLAINT: Fever HISTORY OF PRESENT ILLNESS: Patient is a 55 year old female with a PMHx of DM2, DLP and Arthritis who presented to the ER from Urgent care after she was noted to have a fever. She was admitted to the hospitalist service for fever and started on Doxycycline. Overnight patient was reported to be hypotensive and had received 3L NS bolus. There was a suspicion for UTI and Ciprofloxacin was started. On 07/10 patient was given a dose of Meropenem because of a concern for sepsis. Patient's lactic acid was normal, no leukocytosis, remained afebrile. Patient's antibiotics were adjusted back to Doxycycline. Based on MRI findings and after discussion with radiology, anesthesia was consulted for lumbar puncture to rule encephalitis. HOSPITAL COURSE: Fever - unclear etiology - Patient has presented to [facility] ER, from Urgent care after she had a fever - Reports improvement of headache - Febrile yesterday - No leukocytosis or lactic acidosis - Urine cultures (07/09): Negative - Respiratory panel (07/08): Negative - Blood cultures 07/09: 48 hours negative - [place] negative - Lyme disease appears to be negative / Ehrlichiosis workup - pending - ROQUE pending - s/p CSF (07/10); fluid reviewed / Cultures negative - ID on consultation; appreciate their input - c/w Doxycycline (Day #4) - will complete antibiotic course as outpatient; s/p Dose of Meropenem and Ciprofloxacin - Will have outpatient follow up with Dr. Joe and PCP within 7 days Small renal lesions cannot be excluded based on CT abdomen - MRI abdomen reviewed and does not reveal any concerning mass Small Hemangioma - Discussed findings with patient DM2 - c/w ISS DLP - c/w Simvastatin Arthritis - c/w Tylenol PRN and Ibuprofen PRN DVT prophylaxis - c/w Heparin DISCHARGE MEDICATIONS: Please see below. ALLERGIES: Please see below. PHYSICAL EXAMINATION ON DISCHARGE: Vitals (See below) General: Lying in bed, appears comfortable, AAOx3 HEENT: NC, AT CVS: RRR, +S1S2 Lungs: Fair air entry b/l, no evidence of wheezing / rhonchi / crackles Abdomen: Soft, ND, NT Extremities: No evidence of edema, - Calf tenderness LABORATORY DATA: Please see below IMAGING: CXR (07/08): - No acute cardiopulmonary abnormality. CT head (07/08): - No acute intracranial abnormality identified. CT abdomen / pelvis 07/09: 1. There is heterogeneous enhancement at the upper pole of the right kidney. Right perinephric stranding is identified. This is concerning for pyelonephritis given the clinical history of UTI. Small renal lesions cannot be excluded. 2. A small nonobstructing right renal calculus is identified. Additional simple appearing renal cysts are identified bilaterally. 3. Wall thickening of the distal esophagus is visualized, which has progressed. This can be due to esophagitis, although additional esophageal pathology cannot be excluded. Small paraesophageal lymph nodes are identified. 4. Mild hypodense fatty infiltration of the liver. Hepatomegaly. Within the right hepatic lobe posteriorly, there is a 1.4 x 1.1 cm hypodense lesion with peripheral nodular enhancement. This likely represents a hemangioma, although additional pathology cannot be excluded without delayed imaging. A follow-up m ultiphase postcontrast CT is recommended. 5. Splenomegaly. 6. Wall thickening of the antrum of the stomach and proximal duodenum, suggestive of gastroenteritis. 7. Gas is visualized within the bladder, which is likely iatrogenic or infectious. 8. Diverticulosis. 9. Additional findings described above. MRI brain without contrast (07/09): 1. Mild edema or gliosis is identified involving the frontal cortices medially as well as the medial temporal lobes. There is additional edema/gliosis involving the left insula. Although nonspecific, encephalitis is considered. Cli nical correlation and a follow-up MRI with/without contrast are recommended. 2. No restricted diffusion within the brain to suggest an acute infarct. 3. There are scattered foci of FLAIR hyperintensity within the cerebral white matter. This white matter disease is nonspecific as to etiology, as detailed above. Chronic small vessel ischemic disease is suggested. 4. Mild atrophy. 5. Additional findings described above. MRI brain with contrast (07/10): Postcontrast images of the brain reveals no abnormal contrast enhancement in the areas increased T2/FLAIR signal in bilateral medial frontal and medial temporal lobes. Viral encephalitis such as herpes encephalitis should be considered. No abnormal contrast enhancement is seen to suggest underlying mass lesion. No abnormal contrast enhancement is seen in the remainder of the brain parenchyma. MRI abdomen (07/10): 1. Mild patchy hypoenhancement of the upper pole of the right kidney and mild right perinephric edema. Findings are suggestive of acute pyelonephritis. 2. Diffuse hepatic steatosis. 3. Splenomegaly. 4. Benign right hepatic lobe hemangioma. 5. Mild proximal duodenitis. This appears improved since the prior CT. ACTIVITY: [As tolerated]. DISCHARGE PLAN: Please follow up with PCP and Infectious disease within 7 days Remain compliant with treatment plan and medications Return to the ER if you experience any problems DISPOSITION: Home DISCHARGE CONDITION: [Stable]. TIME SPENT ON DISCHARGE: 35 minutes Vital Signs/I&Os Vital Signs Date Time Temp Pulse Resp B/P (MAP) Pulse Ox O2 Delivery O2 Flow Rate FiO2 07/12/20 06:00 99.4 77 16 111/61 (78) 98 Room Air I&O- Last 24 Hours up to 6 AM 07/12/20 06:00 Intake Total 860 ml Output Total 1800 ml Balance -940 ml Laboratory Data Labs 24H Laboratory Tests 2 07/11/20 16:27: Bedside Glucose (Misc Panel) 211H 07/11/20 20:36: Bedside Glucose (Misc Panel) 193H 07/12/20 05:28: Bedside Glucose (Misc Panel) 167H 07/12/20 06:17: Nucleated Red Blood Cells % (auto) 0.0, Anion Gap 5L, Glomerular Filtration Rate > 60.0, Calcium Level 8.8, Magnesium Level 2.0 07/12/20 11:27: Bedside Glucose (Misc Panel) 262H CBC/BMP Laboratory Tests 07/12/20 06:17 FSBS Laboratory Tests Test 07/11/20 16:27 07/11/20 20:36 07/12/20 05:28 07/12/20 11:27 Range/Units Bedside Glucose (Misc Panel) 211 193 167 262 70-105 MG/DL Microbiology Microbiology 07/10/20 Gram Stain - Final, Complete 07/10/20 CSF Culture - Final, Complete 07/10/20 - Final, Complete 07/09/20 Urine Culture - Final, Complete 07/09/20 Respiratory Virus Panel (PCR) (JACINDA) - Final, Complete 07/09/20 Blood Culture - Preliminary, Resulted No Growth after 48 hours. All Specime... 07/09/20 Blood Culture - Preliminary, Resulted No Growth after 48 hours. All Specime... Discharge Medications Scheduled Doxycycline Hyclate (Doxycycline Hyclate) 100 Mg Tablet, 100 MG PO BID Glipizide (Glipizide) 5 Mg Tablet, 5 MG PO QAM, (Reported) Glipizide (Glipizide) 5 Mg Tablet, 10 MG PO QPM, (Reported) Loratadine (Loratadine) 10 Mg Tablet, 10 MG PO DAILY, (Reported) Metformin HCl (Metformin HCl ER) 500 Mg Tab, 1,000 MG PO QPM, (Reported) Polyethylene Glycol 3350 (Polyethylene Glycol 3350) 17 Gm Powd.pack, 1 PKT PO DAILY Simvastatin (Simvastatin) 40 Mg Tablet, 40 MG PO QHS, (Reported) Scheduled PRN Acetaminophen (Acetaminophen) 500 Mg Tablet, 1,500 MG PO Q6H PRN for NECK PAIN, (Reported) Docusate Sodium (Docusate Sodium) 100 Mg Capsule, 100 MG PO BIDP PRN for CONSTIPATION Allergies Coded Allergies: No Known Allergies (Unverified , 03/19/17) SANTOSH PARK MD Jul 12, 2020 12:43
--- NOTE | 2020-07-12 21:02 | ECHO ---
DATE OF PROCEDURE: 07/10/2020 Age: Gender: Female Height: 160 cm Weight: 90 kg REFERRING PHYSICIAN: Lanre Lake MD INDICATION: Fever. MEASUREMENTS: IV 1.2 cm LV 4.2 cm LVPW cm LA 3.1 cm Aorta 2.9 cm IVC 1.9 cm Mitral E wave velocity 92, A wave 79. E prime septal 7.6 E prime lateral 10.2 FINDINGS: The study is of good technical quality. The patient is in sinus rhythm. Left ventricle is normal size and systolic function with estimated ejection fraction (EF) 65 to 70%. Borderline left ventricular hypertrophy (LVH) is noted. Right ventricle also appears to have normal size and systolic function. Both atria appear normal. All four cardiac valves were reasonably well seen and appear normal. No pericardial effusion is noted. Inferior vena cava is normal size and appropriately collapses with inspiration. Aortic root, aortic arch and visualized segment of abdominal aorta all appear normal. Doppler interrogation reveals competent aortic valve. There is trace mitral insufficiency. There is competent tricuspid valve. Pulmonic valve also exhibits no insufficiency or stenosis. Mitral inflow pattern and tissue Doppler imaging of mitral annulus reveals likely normal diastolic function, even though septal E prime velocity is reduced. CONCLUSIONS: 1. Study is of acceptable technical quality, the patient is in sinus rhythm. 2. Normal LV size with borderline left ventricular hypertrophy (LVH) and preserved LV systolic function. Likely normal diastolic function. 3. No significant valvular disease. 4. Likely normal central venous pressure. 5. Unable to estimate pulmonary artery pressure, but signs to suggest pulmonary hypertension. COMMENTS: Study does not reveal any evidence for vegetations. Obviously, transesophageal echocardiogram will provide much better resolution. [facility]
--- NOTE | 2020-07-12 22:35 | CR ---
DATE OF CONSULTATION: 07/10/2020 REASON FOR CONSULTATION: Asked to consult by Dr. Lanre Lake for evaluation of fever and severe headache. HISTORY OF PRESENT ILLNESS: Tracey is a pleasant, 55-year-old female with a history of non-insulin dependent diabetes who presented with a history of new onset headache that she describes mostly in the frontal area and temporal area associated with a fever up to 102. The patient stated that the headache progressively got worse, it was associated with photophobia and chills, and therefore she came to the emergency room. The patient has a history of urinary tract infection but did not have any urinary symptoms this time. She went to the urgent care where she had a temperature of 104, a negative COVID test, and a urinalysis as well as a chest x-ray that were nonrevealing. She denied nausea, vomiting, or abdominal pain. No constipation or diarrhea. Denied any chest pain or shortness of breath. Patient has a chronic cough. PAST MEDICAL HISTORY: Non-insulin dependent diabetes on metformin and glyburide, dyslipidemia, osteoarthritis, recurrent urinary tract infection. PAST SURGICAL HISTORY: Cholecystectomy, appendectomy, tonsillectomy with adenoidectomy, tympanostomies, and multiple rib fractures. ALLERGIES: No known drug allergies. MEDICATIONS: - glipizide 5 mg one tablet in the morning, two tablets at night - loratadine 10 mg daily - metformin 1000 mg by mouth at bedtime - simvastatin 40 mg by mouth nightly MEDICATIONS HERE: Patient received: - meropenem 1 gram IV on 07/10/2020, one dose - Cipro 200 mg IV times one dose - doxycycline 100 mg by mouth one dose yesterday at 6 p.m. LABORATORY DATA: White count 5.4, hemoglobin 9, hematocrit 26.3, platelets 117, 76% neutrophils, 13% lymphocytes, 5% monocytes, ESR 84, sodium 139, potassium 3.5, chloride 115, bicarbonate 19, BUN 12, creatinine 0.63, glucose 120, lactic acid 1.1, calcium 7.6, magnesium 1.7, CRP 16.1, morning cortisol 12.8, AST 49, bilirubin 1.6, ALT 58, albumin 3.1. Urinalysis had 53 white cells, 3 red cells. ROQUE is pending. Lyme serology is pending. Snyder screen was negative. CSF had 1 white cell, less than 2 red cells, glucose 64, total protein 32. Blood cultures, two sets, were no growth on 07/09/2020. Urine culture is pending. CSF BioFire panel is pending. Gram stain on CSF has no organism seen, no cells. IMAGING: Head CT done on 07/09/2020 has no report. Brain MRI done on 07/09/2020 shows mild edema involving the frontal cortices medially, as well as the medial temporal lobe, as well as the left insula, although nonspecific encephalitis is in the differential. Brain MRI done on 07/10/2020 with contrast showed no abnormal contrast enhancement. T2 signal in bilateral medial frontal and medial temporal lobes concerning for herpes encephalitis. CT abdomen and pelvis shows right perinephric stranding concerning for pyelonephritis, a small renal calculus. PHYSICAL EXAMINATION: Temperature is 102.4, pulse 96, respirations 18, blood pressure 117/51, oxygen saturation 99% on room air. Heart: Normal S1, S2, no murmurs, rubs, or gallops. Lungs: Clear, no wheezes, rales, or rhonchi. Abdomen: Obese, soft, nontender, no hepatosplenomegaly. Back: No costovertebral angle (CVA) or lumbosacral tenderness. Extremities: No clubbing, cyanosis, or edema. Oropharynx: Clear with no thrush. Neck: Supple, no jugular venous distension (JVD), no bruits. No Kernig or Brudzinski sign. Patient is laying in the dark due to severe headache with photophobia. She has normal cranial nerves. Moves all extremities. Is able to sit up without any problems. SOCIAL HISTORY: Patient is . She has three children and ten grandchildren. She lives with her mother and father in [facility] [place] the country but does not go outdoors very much. Denies any tick bites. Denies any rashes. Her family has two cats but she does not usually hang out with the cats or pet them. She has never seen a tick. IMPRESSION: 55-year-old patient admitted with headache, severe photophobia, associated with fever up to 102.4 with so far workup being negative including lumbar puncture that has no pleocytosis, no elevated total protein. MRI without contrast was concerning for encephalitis but with contrast does not show any enhancement. Cerebrospinal fluid (CSF) serology is not suggestive of infectious etiology. Patient denied any history of herpes. She has not had a sexual partner in over 12 years. Differential diagnosis includes tick borne disease such as Lyme disease, Ehrlichiosis, anaplasmosis, Babesia usually is not associated with a headache. Other possible viral illnesses include arboviruses such as West Nile virus. Also in the differential diagnosis, one should rule out temporal arteritis as she has severe bilateral temporal artery tenderness and if headache persists may consider a temporal artery biopsy. PLAN: Continue doxycycline 100 mg by mouth twice a day. Lyme serology has been sent and is pending. Will obtain Ehrlichia polymerase chain reaction (PCR). I would suggest adding ibuprofen 600 mg by mouth every 6 hours as needed for headache and for the fever. Discontinue meropenem, patient does not have a urinary tract infection, she has asymptomatic bacteriuria. Case has been discussed with Dr. Lanre Lake. JUSTIN
--- NOTE | 2020-07-13 14:29 | IPN ---
DATE: 07/11/2020 ATTENDING PHYSICIAN: Arnav Jeo MD SUBJECTIVE: Patient was seen and examined today. She did have a fever yesterday evening, however has remained afebrile into this morning. She states that she feels better today although does continue to have some temporal pain, however less photophobia. Additionally, on further questioning it appears the patients fevers have been persistent over the course of three or so months and have waxed and waned. She states that these can date all the way back to February. The patients primary care provider was contacted and had provided some additional history. It appears on 02/29/2020, the patient had a complaint of some dysuria and urinary incontinence and on presentation had temperature of 102. Her urine culture at the time was positive for Escherichia (E) coli. Additionally, the patient did complain of some sinus swelling and ear pressure. She was treated with Augmentin. Then, on 03/25/2020, the patient had presented again to the urgent care with complaint of abdominal pain and at the time was found to have a temperature of 102.4 and a heart rate of 105. She was tested for COVID which was negative. She once again received a urinalysis which demonstrated E. coli resistant to Ampicillin. She was treated and stated that she had felt better. Then, on 04/28/2020, the patient had developed some feelings of being tired. She once again presented to urgent care where she received a urine culture which was again positive for E. coli. She did have a fever of 102.6 and a heart rate of 119, however denied any headache at the time. Then, her most recent presentation to urgent care was before this admission which is when she had a headache without nuchal rigidity and a fever as high as 104 taken rectally. The patient did have a urine culture drawn as well which has been negative. It appears that on presentation the patient received a CT of the abdomen and pelvis which did demonstrate some enhancement of the upper pole of the right kidney and perinephric stranding concerning for possible pyelonephritis or a small renal lesion. She does have a right renal calculus, nonobstructing, and some renal cysts, as well as some gas visualized within the bladder. However, the patient has not had an Foleys or straight catheterizations to cause air to be in her bladder. The patient today otherwise states that she is feeling better than she was on admission although she still does have some pain in her head. OBJECTIVE: PHYSICAL EXAMINATION: Vital signs: Temperature 98.0 with a maximum temperature (T-max) of 100.9, pulse 79, respiratory rate 16, blood pressure 110/56, pulse oximetry 96% on room air. General: Patient is awake, alert, oriented. She does not appear in any acute distress. She is lying comfortably in bed. HEENT: Atraumatic, normocephalic. Eyes nonicteric. Trachea is midline. Mucous membranes are pink and moist. She does have tenderness on light palpation of her temporal regions bilaterally. There is no visualized temporal arteries. There is no pulsation visualized. There is no jaw tenderness. Cardiovascular: Normal S1, S2. There is a 2/6 systolic ejection murmur present. Regular rate and rhythm. No clicks or rubs. Pulmonary: There is clear vesicular breath sounds bilaterally. Good respiratory effort. No wheezes, rhonchi, or rales. Abdominal: Abdomen is soft, nondistended, nontender. There is no rebound tenderness or guarding. Normoactive bowel sounds throughout. Extremities: No edema. Full and equal pulses bilateral upper and lower extremities. She does have some tenderness on palpation of the right Achilles tendon, otherwise no calf tenderness. Psychiatric: Mood and affect appear appropriate. Neurologic: No focal neurological deficits. LABORATORY DATA: Hematology: White blood cells 5.6, hemoglobin 9.2, hematocrit 26.7, platelet count 146. Chemistries: Sodium 137, potassium 3.9, chloride 110, carbon dioxide 22, BUN 8, creatinine 0.54, fasting glucose 151, calcium 7.8, magnesium 2.0. C-reactive protein 12.6. SEROLOGY: Lyme titers currently pending. Anaplasmosis PCR pending. Ehrlichiosis PCR pending. Herpes simplex antibodies pending. ROQUE screen pending. MICROBIOLOGY: CSF gram stain and cultures negative. CSF PCR negative. Urine culture negative. Respiratory panel negative. Blood cultures times two negative. Abdominal pelvis CT demonstrating right perinephric stranding. Small renal lesions possible. Non-obstructing right renal calculus. Thickening of the distal esophagus possibly due to esophagitis. Mild hypodense fatty infiltration of the liver. Splenomegaly. Wall thickening of the antrum of the stomach and gas visualized in the bladder. Abdominal pelvis MRI currently pending. INPATIENT ANTIBIOTICS: - doxycycline 100 mg twice a day by mouth ASSESSMENT : Fever of unknown origin. Patient has had a fever for approximately 3 months which has been waxing and waning and it appears that at the time of original fever on 02/29/2020, she did have urinary symptoms and had a culture positive for Escherichia (E) coli. Her second presentation on 03/25/2020 demonstrated some abdominal pain which was culture positive for E. coli again. However, on her subsequent visits she did not have any urinary symptoms however was treated for possible urinary infection. Given her fever, the differential continues to remain wide. Consider possible Lyme disease versus other tick-borne illnesses as patient was camping. However, she states that she has not really spent much time outdoors and the history is not quite suggestive of a tick-borne illness. However, the patient is started empirically on doxycycline. She does have some findings on her CT abdomen and pelvis which are of note. One being some perinephric stranding and right renal calculus. However, she also has gas visualized within the bladder and has not had any straight catheter or Orosco catheters placed, which could suggest a type of emphysematous cystitis which could cause her fevers. PLAN : Lyme titers, Ehrlichiosis, and anaplasma PCR have been ordered and are currently pending. Patients blood cultures and urine culture was negative. At this point, the primary team has ordered an MRI of the abdomen to further elucidate the patients pathology. Additionally, the patient did complain of headache and she does have some tenderness present on her bilateral temporal region. Given her fever of unknown origin and her age, will consider possible temporal arteritis. However, patient did not complain of any vision loss or vision changes, just tenderness of her temporal region. Will wait for the MRI of the abdomen. If no clinical findings suggest the cause of her fever, may recommend the patient have a biopsy of her temporal arteries to examine for possible temporal arteritis, at which point she would need to be placed on steroids for treatment. JUSTIN
[2020-07-16 15:08] LABS: HSV TYPE I IgM AB <1:10 titer (<1:10); HSV TYPE II IgG SPECIFIC <0.91 index (0.00-0.90); HSV TYPE II IgM ABY <1:10 titer (<1:10)
== END 2020-07-12 14:36 | disposition home or self-care (01) | DRG 722 ==
LOC: EDBD 14:00 → M ED 14:00 → M MSPAV 18:02 → ENRESERV 19:09
PROVIDERS: ADMIT Internal Medicine; ATTEND Internal Medicine
PROC: 009U3ZX Drainage of Spinal Canal, Percutaneous Approach, Diagnostic (ICD-10-PCS; principal; 2020-07-10)
DX: R50.9 Fever, unspecified (principal); E11.9 Type 2 diabetes mellitus without complications; M19.90 Unspecified osteoarthritis, unspecified site; I95.9 Hypotension, unspecified; D18.09 Hemangioma of other sites; Z79.899 Other long term (current) drug therapy

== ENCOUNTER → 2020-08-18 | Outpatient (REF) | payer BC ==
[~2020-08-18] MED LIST changes: +ACET-683 PO; +BUTA-198 PO; +CLAR10CA3 PO; +DOCU100C16 PO; +DOXY100T PO; +GLIP5TAB8 PO; +LORA-436 PO; +PEG1POW PO; +SIMV40TA20 PO
[2020-08-18 15:22] LABS: HEMOGLOBIN A1c 5.7 %
== END ==
LOC: M SFHCADAM 07:49
PROVIDERS: ATTEND Family Medicine
DX: E11.9 Type 2 diabetes mellitus without complications (principal)

== ENCOUNTER → 2020-08-25 | Outpatient (REF) | payer BC ==
[2020-08-25 13:12] LABS: BASO # 0.1 10^3/uL (0.0-0.2); BASO % 1.5 % (0.0-1.0); EOS # 0.1 10^3/uL (0.0-0.5); HEMATOCRIT 37.2 % (36.0-47.0); HEMOGLOBIN 12.3 g/dl (12.0-15.5); LYMPH # 1.6 10^3/uL (1.5-5.0); LYMPH % 33.4 % (24.0-44.0); MEAN CORPUSCULAR HEMOGLOBIN 29.9 pg (27.0-33.0); MEAN CORPUSCULAR HGB CONC 33.1 g/dl (32.0-36.5); MEAN CORPUSCULAR VOLUME 90.3 fl (80.0-96.0); MONO # 0.3 10^3/uL (0.0-0.8); NEUTROPHILS # 2.6 10^3/uL (1.5-8.5); NEUTROPHILS % 55.1 % (36.0-66.0); PLATELET COUNT, AUTOMATED 184 10^3/uL (150-450); RED BLOOD COUNT 4.12 10^6/uL (4.00-5.40); WHITE BLOOD COUNT 4.7 10^3/uL (4.0-10.0)
== END ==
LOC: M SFHCADAM 07:35
PROVIDERS: ATTEND Family Medicine
DX: D64.9 Anemia, unspecified (principal)

== ENCOUNTER → 2020-09-12 | Outpatient (REF) | payer BC | LOC: M LAB REF 12:15 | PROVIDERS: ATTEND Physician Assistant | DX: N39.0 Urinary tract infection, site not specified (principal) ==

== ENCOUNTER → 2020-10-02 | Outpatient (REF) | payer BC | LOC: M SMT 13:11 | PROVIDERS: ATTEND Urology | DX: N39.0 Urinary tract infection, site not specified (principal) ==

== ENCOUNTER → 2020-10-20 | Outpatient (CLI) | payer BC ==
[~2020-10-20] MED LIST changes: +ISOVUE-370 76% 100ML VIAL As Ordered ONE
--- NOTE | 2020-10-20 11:52 | REP ---
INDICATION: RECURRENT UTI'S. COMPARISON: None TECHNIQUE: Axial precontrast, contrast-enhanced, and delayed images from the lung bases to the pubic symphysis using 100 cc Isovue 370 intravenous contrast material. Coronal and sagittal reformations obtained. This CT examination was performed using the following dose reduction techniques: Automated exposure control, adjustment of mA and/or kv according to the patient's size, and the use of iterative reconstruction technique. FINDINGS: Right kidney includes 9 mm simple cyst in the anterior cortex midpole level as well as evidence for duplicated collecting system without hydronephrosis to either moiety. Left kidney includes 1.1 cm simple cyst in the anterior cortex upper pole level and no evidence for duplication. The kidneys/ureters and bladder are otherwise normal and there is no evidence for nephroureterolithiasis, perinephric stranding, or mass lesion. Liver includes 2 cm benign hemangioma along the posterior segment right hepatic lobe. The spleen, pancreas, and bilateral adrenal glands are normal. Evidence for prior cholecystectomy noted. The enteric system including stomach, small, and large bowel appears normal. Findings suggest prior appendectomy. Moderate fecal stasis noted. Pelvis demonstrates normal bladder and age-appropriate uterus/adnexa. No ascites. No free air. No intraperitoneal or retroperitoneal adenopathy. Abdominal aorta and vasculature appear normal. Musculoskeletal structures are intact and without acute osseous abnormality. IMPRESSION: 1. Right kidney demonstrates duplicated collecting system and 9 mm simple cyst. Left kidney demonstrates 1.1 cm simple cyst. No further urinary tract pathology appreciated. 2. Benign hepatic hemangioma. 3. Moderate fecal stasis. <Electronically signed by Robel Stewart > 10/20/20 [id number]
== END ==
LOC: M RAD 10:59
PROVIDERS: ATTEND Urology
DX: N39.0 Urinary tract infection, site not specified (principal); N28.1 Cyst of kidney, acquired; K76.89 Other specified diseases of liver; K59.00 Constipation, unspecified
CPT/HCPCS: 74178; Q9967

== ENCOUNTER → 2020-10-29 | Outpatient (REF) | payer BC ==
[~2020-10-29] MED LIST changes: -ISOVUE-370 76% 100ML VIAL As Ordered ONE
== END ==
LOC: M SMT 17:01
PROVIDERS: ATTEND Urology
DX: N39.0 Urinary tract infection, site not specified (principal)

== ENCOUNTER → 2020-12-15 | Outpatient (REF) | payer BC ==
[~2020-12-15] MED LIST changes: -LORA-436 PO; +LORA-930 PO
[2020-12-15 14:37] LABS: APPEARANCE, URINE HAZY (CLEAR); BACTERIA, URINE AUTO NEGATIVE (NEGATIVE); BILIRUBIN, URINE AUTO NEGATIVE (NEGATIVE); BLOOD, URINE BLOOD NEGATIVE (NEGATIVE); COLOR, URINE YELLOW (YELLOW); GLUCOSE, URINE (UA) AUTO NEGATIVE (NEGATIVE); KETONE, URINE AUTO NEGATIVE (NEGATIVE); LEUKOCYTE ESTERASE, URINE AUTO 1+ (NEGATIVE); MUCUS, URINE SMALL (NEGATIVE); NITRITE, URINE AUTO NEGATIVE (NEGATIVE); PROTEIN, URINE AUTO NEGATIVE (NEGATIVE); RBC, URINE AUTO 2 /HPF (0-3); SPECIFIC GRAVITY URINE AUTO 1.015 (1.002-1.035); SQUAMOUS EPITHELIAL CELL UR AU 1 /HPF (0-6); UROBILINOGEN, URINE AUTO 0.2 mg/dL (0.0-2.0); WBC, URINE AUTO 23 /HPF (0-3)
[2020-12-15 15:13] LABS: HEMOGLOBIN A1c 6.2 %
== END ==
LOC: M SFHCADAM 09:03
PROVIDERS: ATTEND Family Medicine
DX: R30.0 Dysuria (principal); E11.9 Type 2 diabetes mellitus without complications

== ENCOUNTER → 2020-12-18 | Outpatient (CLI) | payer BC ==
--- NOTE | 2020-12-18 10:48 | REP ---
INDICATION: R92.8 ABNORMAL LT BREAST MAMMO,F/U CAT 3. COMPARISON: Mammography and sonography from April 23, 2019. TECHNIQUE: Bilateral CC and MLO) view(s) were taken. Routine views of both breasts are augmented by magnified focal spot-compression CC, mL, and MLO views of the left breast. 3D tomography is utilized and targeted left breast sonography is performed. FINDINGS: Scattered fibroglandular elements are again seen. The previously noted 5 mm well-circumscribed nodule persists in the left breast laterally. This is unchanged in the nearly 2 year interval since the prior study of April 03, 2019. No other dominant density is seen in either breast. No architectural distortion or micro calcific grouping is seen. Breast parenchyma is otherwise predominantly fat replaced. The Volpara volumetric breast density pattern is B. Targeted sonography: Targeted left breast ultrasound is performed and compared to the prior study. In the 3 o'clock position, 4 cm from the nipple, there is a small hypoechoic area measuring 4 x 5 x 3 mm unchanged from the April 13, 2019 prior study. There is central echogenic texture and peripheral hypoechoic texture to the lesion consistent with a small intramammary lymph node. It is completely unchanged. IMPRESSION: BI-RADS category 2 benign findings. Small benign intramammary lymph node 3 o'clock position left breast. This patient's Tyrer-Cuzick lifetime breast cancer risk assessment score is 8.3%. This mammogram was interpreted with the aid of an FDA-approved computer-aided detection system. The patient states she had a clinical breast exam in over a year ago. The patient letter being requested is M1. RECOMMENDATION: Repeat screening mammography recommended 1 year (for women over 40). <Electronically signed by Taqueria Leigh > 12/18/20 [id number]
== END ==
LOC: M WHC 08:06
PROVIDERS: ATTEND Family Medicine
DX: R92.8 Other abnormal and inconclusive findings on diagnostic imaging of breast (principal); N63.21 Unspecified lump in the left breast, upper outer quadrant
CPT/HCPCS: 76642; 77066; G0279

== ENCOUNTER → 2021-02-12 | Outpatient (CLI) | payer BC ==
[~2021-02-12] MED LIST changes: +MIRA3350 PO; -PEG1POW PO; +POLY17PO18 PO
== END ==
LOC: M LABSMTC 11:04
PROVIDERS: ATTEND Anesthesiology
DX: Z01.812 Encounter for preprocedural laboratory examination (principal); Z20.822 Contact with and (suspected) exposure to COVID-19

== ENCOUNTER 2021-02-17 07:20 | Day surgery (SDC) | payer BC ==
[~2021-02-17] VITALS: Ht 160 cm; Wt 80.6 kg
[~2021-02-17 07:20] MED LIST changes: +NS 1,000 ML IV ONE
[2021-02-17] MEDS ORDERED: propofoL 500 MG/50 ML VIAL As Ordered ONE (07:31)
[2021-02-17] MEDS ORDERED: fentaNYL 100 MCG/2 ML INJECTION (J3010) As Ordered ONE (07:31)
[2021-02-17] MEDS ORDERED: LIDOCAINE 2% 100MG/5ML SDV (FOR ANES.) As Ordered ONE (07:31)
--- NOTE | 2021-02-17 09:11 | ROOR ---
Patient Name: Tracey Elizalde Procedure Date: 02/17/2021 8:51 AM Date of : 1965 Age: 55 Room: [facility] Gender: Female Note Status: Finalized Procedure: Upper GI endoscopy Indications: Heartburn Providers: Zhang ARREDONDO MD Referring MD: Amairani NOGUERA DO Requesting Provider: Medicines: Monitored Anesthesia Care Complications: No immediate complications. Procedure: Pre-Anesthesia Assessment: - The heart rate, respiratory rate, oxygen saturations, blood pressure, adequacy of pulmonary ventilation, and response to care were monitored throughout the procedure. The Endoscope was introduced through the mouth, and advanced to the second part of duodenum. The upper GI endoscopy was accomplished without difficulty. The patient tolerated the procedure well. Findings: Moderately severe esophagitis was found in the lower third of the esophagus. Biopsies were taken with a cold forceps for histology. Small Hiatal Hernia. The entire examined stomach was normal. The examined duodenum was normal. Impression: - Moderately severe reflux and erosive esophagitis. Rule out Longo's esophagus. Biopsied. - Small Hiatal Hernia. - Normal stomach. - Normal examined duodenum. Recommendation: - Use Prilosec (omeprazole) 40 mg PO daily. - (the script was sent to your pharmacy on file) Procedure Code(s): --- Professional --- 11224, Esophagogastroduodenoscopy, flexible, transoral; with biopsy, single or multiple Diagnosis Code(s): --- Professional --- R12, Heartburn K20.8, Other esophagitis K21.0, Gastro-esophageal reflux disease with esophagitis CPT copyright 2019 [employer]. All rights reserved. The codes documented in this report are preliminary and upon mobile lounge driver review may be revised to meet current compliance requirements. Zhang Arredondo MD Zhang ARREDONDO MD 02/17/2021 9:10:49 AM Electronically signed by Zhang ARREDONDO MD Number of Addenda: 0 Note Initiated On: 02/17/2021 8:51 AM Estimated Blood Loss: Estimated blood loss: none.
--- NOTE | 2021-02-17 09:37 | ROOR ---
Patient Name: Tracey Elizalde Procedure Date: 02/17/2021 8:51 AM Date of : 1965 Age: 55 Room: [facility] Gender: Female Note Status: Finalized Procedure: Colonoscopy Indications: Screening for colorectal malignant neoplasm, Incidental - Constipation Providers: Zhang SAWANT MD Referring MD: Amairani NOGUERA DO Requesting Provider: Medicines: Monitored Anesthesia Care Complications: No immediate complications. Procedure: Pre-Anesthesia Assessment: - The heart rate, respiratory rate, oxygen saturations, blood pressure, adequacy of pulmonary ventilation, and response to care were monitored throughout the procedure. The Colonoscope was introduced through the anus and advanced to the cecum, identified by appendiceal orifice and ileocecal valve. The colonoscopy was performed without difficulty. The patient tolerated the procedure well. The quality of the bowel preparation was good. Findings: Skin tags were found on perianal exam. A 5 mm polyp was found in the sigmoid colon. The polyp was sessile. The polyp was removed with a cold snare. Resection and retrieval were complete. Internal hemorrhoids were found during retroflexion. The hemorrhoids were medium-sized. The colon (entire examined portion) was moderately redundant. The exam was otherwise without abnormality on direct and retroflexion views. Impression: - Perianal skin tags found on perianal exam. - One 5 mm polyp in the sigmoid colon, removed with a cold snare. Resected and retrieved. - Internal hemorrhoids. - Redundant colon. - The examination was otherwise normal on direct and retroflexion views. Recommendation: - Repeat colonoscopy in 5 years for surveillance. - Miralax 1 capful (17 grams) in 8 ounces of water PO daily. Procedure Code(s): --- Professional --- 27366, Colonoscopy, flexible; with removal of tumor(s), polyp(s), or other lesion(s) by snare technique Diagnosis Code(s): --- Professional --- K63.5, Polyp of colon Z12.11, Encounter for screening for malignant neoplasm of colon K64.8, Other hemorrhoids K64.4, Residual hemorrhoidal skin tags Q43.8, Other specified congenital malformations of intestine CPT copyright 2019 [employer]. All rights reserved. The codes documented in this report are preliminary and upon r developer review may be revised to meet current compliance requirements. Zhang Sawant MD Zhang SAWANT MD 02/17/2021 9:36:49 AM Electronically signed by Zhang SAWANT MD Number of Addenda: 0 Note Initiated On: 02/17/2021 8:51 AM Estimated Blood Loss: Estimated blood loss: none.
[2021-02-17 09:55] VITALS: BP 124/76
== END 2021-02-17 10:03 | disposition home or self-care (01) ==
LOC: M OPP 07:20
PROVIDERS: ATTEND Internal Medicine Gastroenterology
DX: Z12.11 Encounter for screening for malignant neoplasm of colon (principal); D12.5 Benign neoplasm of sigmoid colon; K64.1 Second degree hemorrhoids; K64.8 Other hemorrhoids; Q43.8 Other specified congenital malformations of intestine; K21.9 Gastro-esophageal reflux disease without esophagitis; K20.90 Esophagitis, unspecified without bleeding; R12 Heartburn; E11.9 Type 2 diabetes mellitus without complications; Z79.84 Long term (current) use of oral hypoglycemic drugs; Z79.899 Other long term (current) drug therapy
CPT/HCPCS: 43239; 45385; 88305; J3010

== ENCOUNTER → 2021-03-16 | Outpatient (REF) | payer BC ==
[~2021-03-16] MED LIST changes: -NS 1,000 ML IV ONE
[2021-03-16 13:02] LABS: ALT/SGPT 25 U/L (12-78); BILIRUBIN,TOTAL 1.1 MG/DL (0.2-1.0); BLOOD UREA NITROGEN 19 MG/DL (7-18); CALCIUM LEVEL 9.1 MG/DL (8.5-10.1); CARBON DIOXIDE LEVEL 28 MEQ/L (21-32); CHLORIDE LEVEL 107 MEQ/L (98-107); CHOLESTEROL LEVEL 136 MG/DL (<200); CREATININE FOR GFR 0.77 MG/DL (0.55-1.30); GLOMERULAR FILTRATION RATE > 60.0 (>51); GLUCOSE, FASTING 166 MG/DL (70-100); HDL CHOLESTEROL 44 MG/DL (>40); LDL CHOLESTEROL 59 MG/DL (<100); NON-HDL-C 92 MG/DL; POTASSIUM SERUM 4.5 MEQ/L (3.5-5.1); SODIUM LEVEL 140 MEQ/L (136-145); TOTAL PROTEIN 7.4 GM/DL (6.4-8.2); TRIGLYCERIDES LEVEL 167 MG/DL (<150)
[2021-03-16 13:43] LABS: HEMOGLOBIN A1c 6.3 %
== END ==
LOC: M SFHCADAM 07:58
PROVIDERS: ATTEND Family Medicine
DX: E11.9 Type 2 diabetes mellitus without complications (principal)

== ENCOUNTER → 2021-06-15 | Outpatient (REF) | payer BC ==
[2021-06-15 14:05] LABS: HEMOGLOBIN A1c 6.3 %
== END ==
LOC: M SFHCADAM 08:19
PROVIDERS: ATTEND Family Medicine
DX: E11.9 Type 2 diabetes mellitus without complications (principal)

== ENCOUNTER → 2021-06-18 | Outpatient (REF) | payer BC | LOC: M SFHCADAM 09:02 | PROVIDERS: ATTEND Family Medicine | DX: E11.9 Type 2 diabetes mellitus without complications (principal) ==

== ENCOUNTER → 2021-08-19 | Outpatient (REF) | payer BC ==
[2021-08-19 13:46] LABS: APPEARANCE, URINE CLOUDY (CLEAR); BACTERIA, URINE AUTO 3+ (NEGATIVE); BILIRUBIN, URINE AUTO NEGATIVE (NEGATIVE); BLOOD, URINE BLOOD 1+ (NEGATIVE); COLOR, URINE AMBER (YELLOW); GLUCOSE, URINE (UA) AUTO NEGATIVE (NEGATIVE); KETONE, URINE AUTO NEGATIVE (NEGATIVE); LEUKOCYTE ESTERASE, URINE AUTO 2+ (NEGATIVE); NITRITE, URINE AUTO POSITIVE (NEGATIVE); PROTEIN, URINE AUTO 1+ mg/dL (NEGATIVE); RBC, URINE AUTO 0 /HPF (0-3); SPECIFIC GRAVITY URINE AUTO 1.019 (1.002-1.035); SQUAMOUS EPITHELIAL CELL UR AU 5 /HPF (0-6); WBC, URINE AUTO 79 /HPF (0-3)
== END ==
LOC: M SFHCADAM 08:08
PROVIDERS: ATTEND Nurse Practitioner Women's Health
DX: R30.0 Dysuria (principal)

== ENCOUNTER → 2021-09-14 | Outpatient (REF) | payer BC ==
[2021-09-14 13:34] LABS: APPEARANCE, URINE HAZY (CLEAR); BACTERIA, URINE AUTO 2+ (NEGATIVE); BILIRUBIN, URINE AUTO NEGATIVE (NEGATIVE); BLOOD, URINE BLOOD NEGATIVE (NEGATIVE); COLOR, URINE YELLOW (YELLOW); GLUCOSE, URINE (UA) AUTO NEGATIVE (NEGATIVE); KETONE, URINE AUTO NEGATIVE (NEGATIVE); LEUKOCYTE ESTERASE, URINE AUTO 2+ (NEGATIVE); NITRITE, URINE AUTO POSITIVE (NEGATIVE); PROTEIN, URINE AUTO NEGATIVE (NEGATIVE); RBC, URINE AUTO 0 /HPF (0-3); SPECIFIC GRAVITY URINE AUTO 1.017 (1.002-1.035); SQUAMOUS EPITHELIAL CELL UR AU 1 /HPF (0-6); WBC, URINE AUTO 40 /HPF (0-3)
[2021-09-14 13:47] LABS: ALT/SGPT 26 U/L (12-78); BILIRUBIN,TOTAL 1.3 MG/DL (0.2-1.0); BLOOD UREA NITROGEN 19 MG/DL (7-18); CALCIUM LEVEL 9.1 MG/DL (8.5-10.1); CARBON DIOXIDE LEVEL 28 MEQ/L (21-32); CHLORIDE LEVEL 104 MEQ/L (98-107); CREATININE FOR GFR 0.87 MG/DL (0.55-1.30); GLOMERULAR FILTRATION RATE > 60.0 (>51); GLUCOSE, FASTING 128 MG/DL (70-100); POTASSIUM SERUM 4.4 MEQ/L (3.5-5.1); SODIUM LEVEL 137 MEQ/L (136-145); TOTAL PROTEIN 7.2 GM/DL (6.4-8.2)
[2021-09-14 14:02] LABS: HEMOGLOBIN A1c 6.3 %
== END ==
LOC: M SFHCADAM 08:20
PROVIDERS: ATTEND Family Medicine
DX: E11.9 Type 2 diabetes mellitus without complications (principal); R30.0 Dysuria

== ENCOUNTER → 2021-09-18 | Outpatient (REF) | payer BC | LOC: M SFHCADAM 14:28 | PROVIDERS: ATTEND Family Medicine | DX: R70.1 Abnormal plasma viscosity (principal) ==

== ENCOUNTER → 2021-10-06 | Outpatient (REF) | payer BC ==
[~2021-10-06] MED LIST changes: +CEFD300C41 PO; +FERR325T3 PO; +FOLI1TAB11 PO; +NITR100C2 PO; +OMEP40CA5 PO
[2021-10-06 17:52] LABS: APPEARANCE, URINE CLEAR (CLEAR); BACTERIA, URINE AUTO NEGATIVE (NEGATIVE); BILIRUBIN, URINE AUTO NEGATIVE (NEGATIVE); BLOOD, URINE BLOOD NEGATIVE (NEGATIVE); COLOR, URINE YELLOW (YELLOW); GLUCOSE, URINE (UA) AUTO NEGATIVE (NEGATIVE); KETONE, URINE AUTO NEGATIVE (NEGATIVE); LEUKOCYTE ESTERASE, URINE AUTO 1+ (NEGATIVE); NITRITE, URINE AUTO NEGATIVE (NEGATIVE); PROTEIN, URINE AUTO NEGATIVE (NEGATIVE); RBC, URINE AUTO 0 /HPF (0-3); SPECIFIC GRAVITY URINE AUTO 1.012 (1.002-1.035); SQUAMOUS EPITHELIAL CELL UR AU 1 /HPF (0-6); UROBILINOGEN, URINE AUTO 0.2 mg/dL (0.0-2.0); WBC, URINE AUTO 2 /HPF (0-3)
== END ==
LOC: M SMT 17:06
PROVIDERS: ATTEND Nurse Practitioner Women's Health
DX: N39.0 Urinary tract infection, site not specified (principal)

== ENCOUNTER → 2021-10-15 | Outpatient (REF) | payer BC ==
[~2021-10-15] MED LIST changes: -CEFD300C41 PO; -FERR325T3 PO; -FOLI1TAB11 PO; +OMEP-221 PO; -OMEP40CA5 PO
[2021-10-15 18:40] LABS: HEMOGLOBIN A1c 6.5 %
[2021-10-15 18:44] LABS: BASO % 0.9 % (0.0-1.0); EOS # 0.1 10^3/uL (0.0-0.5); HEMATOCRIT 37.5 % (36.0-47.0); HEMOGLOBIN 12.5 g/dl (12.0-15.5); LYMPH # 1.7 10^3/uL (1.5-5.0); LYMPH % 39.2 % (24.0-44.0); MEAN CORPUSCULAR HEMOGLOBIN 30.2 pg (27.0-33.0); MEAN CORPUSCULAR HGB CONC 33.3 g/dl (32.0-36.5); MEAN CORPUSCULAR VOLUME 90.6 fl (80.0-96.0); MONO # 0.3 10^3/uL (0.0-0.8); MONO % 5.9 % (2.0-8.0); NEUTROPHILS # 2.3 10^3/uL (1.5-8.5); NEUTROPHILS % 51.8 % (36.0-66.0); PLATELET COUNT, AUTOMATED 199 10^3/uL (150-450); RED BLOOD COUNT 4.14 10^6/uL (4.00-5.40); WHITE BLOOD COUNT 4.4 10^3/uL (4.0-10.0)
[2021-10-15 18:57] LABS: PARTIAL THROMBOPLASTIN TIME 30.7 SECONDS (25.9-37.0)
[2021-10-15 18:59] LABS: D-DIMER QUANT 284.81 ng/ml (<500)
[2021-10-15 19:00] LABS: ALBUMIN 4.1 GM/DL (3.2-5.2); ALT/SGPT 24 U/L (12-78); BILIRUBIN,TOTAL 1.1 MG/DL (0.2-1.0); BLOOD UREA NITROGEN 22 MG/DL (7-18); CALCIUM LEVEL 9.3 MG/DL (8.5-10.1); CARBON DIOXIDE LEVEL 28 MEQ/L (21-32); CHLORIDE LEVEL 105 MEQ/L (98-107); CREATININE FOR GFR 0.84 MG/DL (0.55-1.30); FERRITIN 44 NG/ML (8-252); GLOMERULAR FILTRATION RATE > 60.0 (>51); GLUCOSE, FASTING 128 MG/DL (70-100); INR 0.9; IRON (FE) 55 UG/DL (50-170); LDH LACTATE DEHYDROGENASE 156 U/L (84-246); PERCENT SATURATION 16.6 % (13.2-45.0); POTASSIUM SERUM 3.6 MEQ/L (3.5-5.1); PROTHROMBIN TIME 12.6 SECONDS (12.7-14.5); SODIUM LEVEL 139 MEQ/L (136-145); TOTAL IRON BINDING CAPACITY 332 UG/DL (250-450); TOTAL PROTEIN 7.3 GM/DL (6.4-8.2)
[2021-10-15 19:03] LABS: VITAMIN B12 LEVEL 442 PG/ML
== END ==
LOC: M LABDRWAD 17:19
PROVIDERS: ATTEND Internal Medicine Hematology & Oncology
DX: R71.8 Other abnormality of red blood cells (principal)

== ENCOUNTER → 2021-11-12 | Outpatient (CLI) | payer BC ==
[~2021-11-12] MED LIST changes: +CEFD300C41; +FERR325T3 PO; +FOLI1TAB11 PO
== END ==
LOC: M RAD 08:10
PROVIDERS: ATTEND Internal Medicine Medical Oncology
DX: R16.1 Splenomegaly, not elsewhere classified (principal); N28.1 Cyst of kidney, acquired

== ENCOUNTER → 2021-12-14 | Outpatient (REF) | payer BC ==
[~2021-12-14] MED LIST changes: -CEFD300C41; +CEFD300C41 PO; -OMEP-221 PO; +OMEP40CA5 PO
[2021-12-14 13:09] LABS: ALBUMIN 3.9 GM/DL (3.2-5.2); ALT/SGPT 21 U/L (12-78); BLOOD UREA NITROGEN 16 MG/DL (7-18); CALCIUM LEVEL 8.7 MG/DL (8.5-10.1); CARBON DIOXIDE LEVEL 27 MEQ/L (21-32); CHLORIDE LEVEL 108 MEQ/L (98-107); CREATININE FOR GFR 0.79 MG/DL (0.55-1.30); GLOMERULAR FILTRATION RATE > 60.0 (>51); GLUCOSE, FASTING 147 MG/DL (70-100); POTASSIUM SERUM 4.1 MEQ/L (3.5-5.1); SODIUM LEVEL 142 MEQ/L (136-145)
[2021-12-14 13:13] LABS: HEMOGLOBIN A1c 6.6 %
== END ==
LOC: M SFHCADAM 08:01
PROVIDERS: ATTEND Family Medicine
DX: E11.69 Type 2 diabetes mellitus with other specified complication (principal)

== ENCOUNTER → 2022-02-10 | Outpatient (CLI) | payer BC ==
[2022-02-10 16:34] LABS: INR 0.96; PROTHROMBIN TIME 13.2 SECONDS (12.7-14.5)
[2022-02-10 16:48] LABS: ALBUMIN 3.8 GM/DL (3.2-5.2); ALT/SGPT 27 U/L (12-78); BILIRUBIN,DIRECT 0.3 MG/DL (0.0-0.2); BILIRUBIN,TOTAL 1.3 MG/DL (0.2-1.0); IRON (FE) 59 UG/DL (50-170); PERCENT SATURATION 18.2 % (13.2-45.0); TOTAL IRON BINDING CAPACITY 324 UG/DL (250-450); TOTAL PROTEIN 6.9 GM/DL (6.4-8.2)
[2022-02-10 17:08] LABS: HEPATITIS B SURFACE ANTIGEN NEGATIVE (NEGATIVE)
[2022-02-10 17:36] LABS: HEPATITIS B CORE ANTIBODY IGM NEGATIVE (NEGATIVE); HEPATITIS C VIRUS ABY INDEX 0.1 INDEX (<0.8)
== END ==
LOC: M LAB 15:24
PROVIDERS: ATTEND Internal Medicine Gastroenterology
DX: R16.1 Splenomegaly, not elsewhere classified (principal)

== ENCOUNTER → 2022-03-12 | Outpatient (CLI) | payer BC | LOC: M RAD 09:09 | PROVIDERS: ATTEND Internal Medicine Gastroenterology | DX: R16.1 Splenomegaly, not elsewhere classified (principal); K76.0 Fatty (change of) liver, not elsewhere classified; N28.1 Cyst of kidney, acquired ==

== ENCOUNTER → 2022-04-14 | Outpatient (CLI) | payer BC | LOC: M RAD 08:00 | PROVIDERS: ATTEND Internal Medicine Gastroenterology | DX: R16.1 Splenomegaly, not elsewhere classified (principal); R16.0 Hepatomegaly, not elsewhere classified | CPT/HCPCS: 78215; A9541 ==

== ENCOUNTER → 2024-11-13 | Outpatient (REF) | payer BC ==
[~2024-11-13] MED LIST changes: +CEFD1CAP9 PO; -CEFD300C41 PO; +GLIP5TAB17 PO; -GLIP5TAB8 PO
[2024-11-13 17:38] LABS: BASO # 0.1 10^3/uL (0.0-0.2); BASO % 1.2 % (0.0-1.0); EOS # 0.1 10^3/uL (0.0-0.5); HEMATOCRIT 42.2 % (36.0-47.0); LYMPH # 1.4 10^3/uL (1.5-5.0); LYMPH % 35.2 % (24.0-44.0); MEAN CORPUSCULAR HEMOGLOBIN 29.7 pg (27.0-33.0); MEAN CORPUSCULAR HGB CONC 33.2 g/dl (32.0-36.5); MEAN CORPUSCULAR VOLUME 89.4 fl (80.0-96.0); MONO # 0.2 10^3/uL (0.0-0.8); MONO % 5.5 % (2.0-8.0); NEUTROPHILS # 2.2 10^3/uL (1.5-8.5); NEUTROPHILS % 55.9 % (36.0-66.0); PLATELET COUNT, AUTOMATED 185 10^3/uL (150-450); RED BLOOD COUNT 4.72 10^6/uL (4.00-5.40)
[2024-11-13 17:50] LABS: ALBUMIN 3.9 G/DL (3.2-5.2); ALKALINE PHOSPHATASE 89 U/L (35-104); ALT/SGPT 13 U/L (7.0-40); AST/SGOT < 8 U/L (<34); BILIRUBIN,TOTAL 1.5 MG/DL (0.3-1.2); BLOOD UREA NITROGEN 15 MG/DL (9-23); CALCIUM LEVEL 8.8 MG/DL (8.5-10.1); CARBON DIOXIDE LEVEL 28 MMOL/L (20-31); CHLORIDE LEVEL 108 MMOL/L (98-107); CHOLESTEROL LEVEL 193 MG/DL (<200); CREATININE FOR GFR 0.62 MG/DL (0.55-1.30); GLOMERULAR FILTRATION RATE > 60.0 (>51); GLUCOSE, FASTING 262 MG/DL (60-100); LDL CHOLESTEROL 124.8 MG/DL (<100); POTASSIUM SERUM 4.5 MMOL/L (3.5-5.1); SODIUM LEVEL 141 MMOL/L (136-145); TOTAL PROTEIN 6.8 G/DL (5.7-8.2); TRIGLYCERIDES LEVEL 136 MG/DL (<150)
[2024-11-13 17:52] LABS: THYROID STIMULATING HORMONE 1.722 uIU/ML (0.55-4.78)
[2024-11-13 17:53] LABS: FREE T4 1.24 NG/DL (0.89-1.76)
[2024-11-13 18:05] LABS: HEMOGLOBIN A1c 10.5 % (4.0-6.0)
== END ==
LOC: M SFHCADAM 10:53
PROVIDERS: ATTEND Family Medicine
DX: Z00.00 Encounter for general adult medical examination without abnormal findings (principal); E11.69 Type 2 diabetes mellitus with other specified complication

== ENCOUNTER → 2024-12-10 | Outpatient (CLI) | payer BC | LOC: M ADAMS 10:06 | PROVIDERS: ATTEND Family Medicine | DX: R05.1 Acute cough (principal) ==

== ENCOUNTER → 2024-12-28 | Outpatient (CLI) | payer BC | LOC: M WHC 07:50 | PROVIDERS: ATTEND Family Medicine | DX: R16.2 Hepatomegaly with splenomegaly, not elsewhere classified (principal); K76.0 Fatty (change of) liver, not elsewhere classified; Z90.49 Acquired absence of other specified parts of digestive tract ==

== ENCOUNTER → 2025-02-19 | Outpatient (REF) | payer BC ==
[2025-02-19 13:58] LABS: HEMOGLOBIN A1c 6.8 % (4.0-6.0)
[2025-02-19 14:20] LABS: CREATININE, URINE 62.9 MG/DL
[2025-02-19 14:21] LABS: MAU/CREAT RATIO 14.3 MCG/MG (0.0-30.0)
[2025-02-19 14:24] LABS: ALBUMIN 3.9 G/DL (3.2-5.2); ALKALINE PHOSPHATASE 89 U/L (35-104); ALT/SGPT 15 U/L (7.0-40); AST/SGOT 11 U/L (<34); BILIRUBIN,TOTAL 1.6 MG/DL (0.3-1.2); BLOOD UREA NITROGEN 15 MG/DL (9-23); CALCIUM LEVEL 9.1 MG/DL (8.5-10.1); CARBON DIOXIDE LEVEL 28 MMOL/L (20-31); CHLORIDE LEVEL 104 MMOL/L (98-107); CREATININE FOR GFR 0.67 MG/DL (0.55-1.30); GLOMERULAR FILTRATION RATE > 90.0 (>51); GLUCOSE, FASTING 179 MG/DL (60-100); POTASSIUM SERUM 4.5 MMOL/L (3.5-5.1); SODIUM LEVEL 140 MMOL/L (136-145)
== END ==
LOC: M SFHCADAM 10:21
PROVIDERS: ATTEND Family Medicine
DX: E11.69 Type 2 diabetes mellitus with other specified complication (principal)

== ENCOUNTER → 2025-02-25 | Outpatient (CLI) | payer BC ==
[~2025-02-25] MED LIST changes: +PROHANCE 279.3MG/ML 15ML VIAL As Ordered ONE
== END ==
LOC: M RAD 12:22
PROVIDERS: ATTEND Otolaryngology
DX: H91.93 Unspecified hearing loss, bilateral (principal)
CPT/HCPCS: 70553; A9576

== ENCOUNTER → 2025-08-23 | Outpatient (REF) | payer BC ==
[~2025-08-23] MED LIST changes: -PROHANCE 279.3MG/ML 15ML VIAL As Ordered ONE
[2025-08-23 14:38] LABS: ALT/SGPT 16.0 U/L (7.0-40); AST/SGOT 13.0 U/L (<34); CALCIUM LEVEL 9.2 MG/DL (8.3-10.6); CARBON DIOXIDE LEVEL 25.0 MMOL/L (20-31); CHLORIDE LEVEL 107.0 MMOL/L (98-107); CREATININE FOR GFR 0.88 MG/DL (0.55-1.30); GLOMERULAR FILTRATION RATE 75.2 (>45); POTASSIUM SERUM 4.2 MMOL/L (3.5-5.1); SODIUM LEVEL 144.0 MMOL/L (136-145)
[2025-08-23 14:55] LABS: ESTIMATED AVERAGE GLUCOSE 169.0 MG/DL (60-110)
[2025-08-23 14:58] LABS: MALB URINE SIEMENS 9.0 MG/L
[2025-08-23 15:00] LABS: CREATININE, URINE 72.4 MG/DL; MAU/CREAT RATIO 12.4 MCG/MG (0.0-30.0)
== END ==
LOC: M SFHCADAM 09:48
PROVIDERS: ATTEND Family Medicine
DX: E11.69 Type 2 diabetes mellitus with other specified complication (principal)

== ENCOUNTER → 2025-08-26 | Outpatient (CLI) | payer BC | LOC: M ADAMS 10:53 | PROVIDERS: ATTEND Family Medicine | DX: M41.9 Scoliosis, unspecified (principal) ==